=== PATIENT | male | born 1980 | race Caucasian/White ===

== ENCOUNTER 2019-11-08 11:58 | Inpatient (IN) | payer OTHER, SELFPAY ==
[2019-11-08] VITALS (11 sets, daily range): BP systolic 133–161; BP diastolic 90–107; PULSE 106–134; RESP 16–22; TEMP 36.7–39.4; O2SAT 96–98; BMI 28.0
--- NOTE | ~2019-11-08 | CT_ITS ---
EXAMINATION: CTA chest PE protocol EXAM DATE: 11/08/2019 13:53 INDICATION: Shortness of breath, fever and cough. TECHNIQUE: Spiral CTA of the chest (pulmonary arteries) was performed with 100 cc Omnipaque 350 intr avenous contrast injection. Images were acquired during the pulmonary arterial phase. Coronal maxi mum intensity projection 3D-reconstructions were created by the technologist on dedicated workstation . Axial, coronal and sagittal reformatted images were reviewed. The dose-length product (DLP) for t his examination was 527.97 mGy-cm. The exposure was tailored according to patient size (auto mA exp osure control), and iterative reconstruction (ASIR) was used as additional dose reduction technique. There is no prior study for comparison. FINDINGS: There are no pulmonary emboli in the 1st through 3rd order (central and interlobar) pulmon [place] arteries. Some loss of attenuation in the segmental pulmonary arteries due to respiratory motion , but no intraluminal filling defects suspected. No thoracic aortic dissection. The lungs are meryl r. There are no pleural or pericardial effusions. Tracheobronchial tree is patent. There is no mediastinal, hilar or axillary lymphadenopathy. There is no pneumothorax. Heart normal in size. No evidence of coronary arterial calcification. Severe hepatic steatosis. There is fluid in the eso phagus, likely gastroesophageal reflux. There is mild thoracic spondylosis without osteoblastic or o steolytic lesions identified. IMPRESSION: 1. Limited segmental evaluation, but no pulmonary emboli are suspected. 2. Hepatic steatosis. Reviewed, dictated and finalized at location A.
--- NOTE | ~2019-11-08 | US_ITS ---
EXAMINATION: US abdomen limited DATE: 11/08/2019 15:21 INDICATION: Transaminitis, hyperbilirubinemia TECHNIQUE: Multiple grayscale and Doppler ultrasound images of the abdomen were obtained. COMPARISON: None available FINDINGS: The head, body, and tail of the pancreas are normal. The liver demonstrates increased echog enicity, heterogenous echotexture, and decreased through transmission. No surface nodularity. Normal hepatopetal flow in the main portal vein. The gallbladder is normal with no abnormal wall thickening, pericholecystic fluid or stones. The normal common bile duct measures 6 mm. There was no sonographic Vargas sign. IMPRESSION: 1. Heterogeneous echotexture of the liver which may reflect steatosis or other liver disease. Reviewed, dictated and finalized at location A.
--- NOTE | ~2019-11-08 | XR_ITS ---
EXAMINATION: XR lumbar puncture diagnostic DATE: 11/09/2019 21:27 INDICATION: Confusion and fever TECHNIQUE: Consent for the procedure was obtained by the floor nursing staff. The patient understood the risks and agreed to proceed. A timeout was performed to verify the patient's name, date of michel h, and procedure to be performed. The skin overlying the L4-5 level was prepared and draped in usual sterile fashion. Subcutaneous 1% lidocaine was used for local anesthesia. A 20 gauge spinal needle w as advanced under fluoroscopic guidance. There was blood return through the needle and the needle was removed. Next, a 22 gauge spinal needle was advanced under fluoroscopic guidance. This yielded cereb rospinal fluid. The needle was removed and the entry site was cleaned and dressed. There were no imme diate complications. Fluoroscopy exposure time was 0.3 minutes. The DAP for this procedure was 25.981 Gycm2. Three images were obtained. FINDINGS: Real-time fluoroscopy demonstrates the needle at the L4-5 level. 12 mL of sanguinous, cloud y fluid was collected in 4 tubes. IMPRESSION: 1. Successful fluoro-guided lumbar puncture. Reviewed, dictated and finalized at location A.
--- NOTE | ~2019-11-08 | XR_ITS ---
EXAMINATION: XR chest 1V portable EXAM DATE: 11/08/2019 12:52 INDICATION: Cough and dyspnea. TECHNIQUE: Portable AP frontal chest x-ray was obtained. There is no prior study for comparison. FINDINGS: The lungs are clear. There are no pleural effusions. The cardiomediastinal silhouette is within normal limits. There is no pneumothorax suspected. The bones and soft tissues are unremarkab le. IMPRESSION: Unremarkable chest x-ray exam. Reviewed, dictated and finalized at location A.
--- NOTE | ~2019-11-08 | US_ITS ---
US renal BI DATE: 11/16/2019 14:08 INDICATION: Acute renal failure TECHNIQUE: Real-time imaging of the kidneys and urinary bladder COMPARISON: 11/08/2019 limited abdominal ultrasound examination FINDINGS: The right kidney measures approximately 13.2 cm length, the left kidney 12.4 cm. No renal m ass lesion or hydronephrosis is evident. The urinary bladder is evacuated and not optimally evaluated as a result. IMPRESSION: No evidence of obstructive uropathy; no hydronephrosis No renal mass lesion is evident Reviewed, dictated and finalized at Location A. Reviewed, dictated and finalized at location A.
--- NOTE | ~2019-11-08 | MR_ITS ---
EXAMINATION: MR brain/brain stem wo/w con EXAM DATE: 11/11/2019 09:45 INDICATION: Fever, altered mental status. Mouth sores. TECHNIQUE: Magnetic resonance imaging (MRI) of the brain/brain stem obtained without contrast. Sagit basilia T1, axial diffusion, gradient echo (T2*), T1, T2, FLAIR sequences obtained. Patient was then inj ected with 18 cc intravenous Multihance contrast. Axial and coronal postcontrast T1 weighted sequence s obtained. There is no prior study for comparison. FINDINGS: There are no areas of restricted diffusion to suggest acute infarction. There is no acute hemorrhage seen on the T2*, a hemosiderin sensitive sequence. No intraparenchymal brain mass. The ve ntricles are normal in size. There are no extra-axial collections. Flow voids are seen in the cereb ral arteries on the T2-weighted sequences consistent with their expected patency. The orbits are unr emarkable. Soft tissue is unremarkable. There are no areas of abnormal enhancement on the postcont rast images. IMPRESSION: Normal brain MRI examination. Reviewed, dictated and finalized at location B.
--- NOTE | ~2019-11-08 | CT_ITS ---
EXAMINATION: CT brain wo con INDICATION: Confusion and altered mental status COMPARISON: None TECHNIQUE: Standard unenhanced head CT. The dose-length product (DLP) was 529.67 mGy-cm. The mA was a djusted according to patient size. Iterative reconstruction technique was employed. FINDINGS: There is no intracranial hemorrhage, acute infarction, or abnormal mass lesion. The ventric les are normal. There is no abnormal mass effect or midline shift. The cooper-white matter differentiat ion is normal. The basal cisterns are patent. The orbits are normal. The paranasal sinuses, mastoids and calvarium are normal. IMPRESSION: 1. No acute intracranial abnormality. Reviewed, dictated and finalized at location A.
--- NOTE | 2019-11-08 12:09 | ECG_ITS ---
Measurements Intervals [place] Rate: 120 P: 51 ME: 136 QRS: -88 QRSD: 101 T: 62 QT: 336 QTc: 476 Interpretive Statements SINUS TACHYCARDIA LEFT ANTERIOR FASCICULAR BLOCK BASELINE WANDER- I, III, V1, V4-V6 ABNORMAL ECG Electronically Signed On 11-08-2019 13:18:12 CDT by Gera Tapia D.O.
--- NOTE | 2019-11-08 12:09 | ED.GENADULT ---
HPI - General Adult General Chief complaint: Shortness of Breath/Dyspnea Stated complaint: ST, ORAL LESIONS, SOB Time Seen by Provider: 11/08/19 12:08 Source: patient Mode of arrival: ambulatory Limitations: no limitations History of Present Illness HPI narrative: Patient is a 39-year-old male who presents for evaluation of fever, cough and shortness of breath. Patient has had 3 days worth of symptoms, states he has had fevers, chills at home. At times he is very diaphoretic. He denies any chest pain, myalgias, back pain, abdominal pain, diarrhea. He has had some nausea, no emesis. States he has had decreased oral intake, but has been able to tolerate oral intake. Patient reports sore throat, rhinorrhea and congestion. He reports sores on his mouth. No rash otherwise, no sores on his hands or feet. No recent sick contacts. 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 Patient has mostly been isolating at home with family. Patient has no other known medical problems. No recent travel. Related Data Allergies Allergy/AdvReac Type Severity Reaction Status Date / Time No Known Allergies Allergy Unknown Verified 11/08/19 12:12 Review of Systems Review of Systems: Narrative: CONSTITUTIONAL: Reports fever, chills, diaphoresis EYES: Denies visual changes, redness, or discharge. ENT: Reports rhinorrhea, congestion, sore throat, sores overlying mouth CARDIOVASCULAR: Denies chest pain, reports palpitations RESPIRATORY: Reports cough and shortness of breath GASTROINTESTINAL: Denies abdominal pain, reports nausea GENITOURINARY: Denies dysuria or hematuria. SKIN: Denies rash or itching. MUSCULOSKELETAL: Denies back pain, joint pain, or myalgia. NEUROLOGIC: Denies headache, numbness, or weakness. [facility] Past Medical History Medical History (Updated 11/08/19 @ 14:30 by Gris Riddle MD) Anxiety Lipoma of back Family History Family History (Updated 07/16/19 @ 13:52 by Destiney John CMA) Mother Breast cancer Father Hypertension Social History Social History Smokeless tobacco user: chewing tobacco Alcohol intake: current Gender identity (if verbalized by the patient): Male Exam Narrative: Exam Narrative: GENERAL: Awake, alert, conversant, rigorous, diaphoretic HEAD: Normocephalic, atraumatic. EYES: PERRLA and EOMI. ENT: Nares clear, no rhinorrhea or epistaxis. Mucous membranes moist. Aphthous ulcers of tongue, lips. Exudate in posterior oropharynx, bilateral tonsils. NECK: Supple. CHEST: Tachypneic, coarse respirations bilaterally Heart, tachycardic, sinus rhythm ABDOMEN:Non distended, non tender EXTREMITIES: Normal range of motion. No edema. SKIN: Warm, dry, no rash. NEURO:No focal deficits. Alert and oriented x3 Course Vital Signs Vital signs: Vital Signs Temperature 37.7 C H 11/08/19 12:06 Pulse Rate 134 H 11/08/19 12:06 Respiratory Rate 22 H 11/08/19 12:06 Blood Pressure 161/107 H 11/08/19 12:06 Pulse Oximetry 97 11/08/19 12:06 Temperature 37.7 C H 11/08/19 12:06 Pulse Rate 112 H 11/08/19 14:08 Respiratory Rate 16 11/08/19 14:08 Blood Pressure 147/99 H 11/08/19 14:08 Pulse Oximetry 96 11/08/19 14:08 Medical Decision Making MDM Narrative Medical decision making narrative: Patient is a 39-year-old male who presented for evaluation of cough, sore throat, shortness of breath. At the time of initial assessment, ABCs are intact, vital signs are notable for tachycardia, tachypnea and fever. Patient is not hypoxic. No increased work of breathing or respiratory distress. Given concern for sepsis, IV access obtained and labs are drawn. Initially wanted to withhold a 30 mL/kg fluid bolus because I was concerned the patient may have COVID and I know that judicious fluids are recommended in these patients. Strep swab negative. Blood cultures obtained, patient was given IV
[2019-11-08] MEDS: SODIUM CHLORIDE 0.9% IV 1,000 ML 999 ML IV CONT ×2 (12:31→16:06)
[2019-11-08 12:32] LABS: Basophils Percent Auto 0.3 % (0.2-1.2); Hematocrit 44.2 % (42.0-52.0); Hemoglobin 15.6 g/dL (14.0-18.0); Immature Granulocyte Absolute 0.05 K/mm3 (0.00-0.031); Immature Granulocyte Percent A 0.8 % (0-0.5); Lymphocytes Absolute Auto 0.55 K/mm3 (0.9-3.2); Lymphocytes Percent Auto 8.5 % (18.3-44.2); Mean Corpuscular HGB Conc 35.3 g/dl (32-36); Mean Corpuscular Hemoglobin 32.8 pg (26-34); Mean Corpuscular Volume 92.9 fl (80-100); Monocytes Absolute Auto 0.9 K/mm3 (0.1-0.6); Monocytes Percent Auto 13.7 % (2.6-8.5); Neutrophils Absolute Auto 4.9 K/mm3 (1.3-6.7); Neutrophils Percent Auto 76.7 % (45.5-73.1); Platelet Count Result 153 k/mm3 (150-375); Red Blood Count 4.76 M/mm3 (4.6-6.20); Red Cell Distribution Width 13.8 % (11.5-14.5); White Blood Count 6.4 K/mm3 (4.5-10.0)
[2019-11-08 12:36] LABS: Alveolar/Arterial O2 Gradient 29.6 mmHg; Base Excess ABG 0.6 mEq/l (+/-2.0); Carboxyhemoglobin 0.6 % THb (0-2.0); Fractional Inspired Oxygen 21 %; HCO3 ABG 22.8 mEq/l (22.0-26.0); Methemoglobin ABG 0.6 %THb (0-1.5); Oxygen Saturation ABG 97.1 % (95.0-100.0); Oxyhemoglobin 95.2 % THb (90.0-100.0); PCO2 ABG 30.4 mmHg (35.0-45.0); PO2 ABG 83.7 mmHg (80.0-100.0); PO2 FiO2 Ratio Arterial Blood 3.99 %; Reduced Hemoglobin 3.6 %THb (0-5.0); Site Drawn LEFT BRACHIAL; Total Hemoglobin 16.4 g/dL (12.0-18.0); pH ABG 7.492 (7.350-7.450)
[2019-11-08 12:37] LABS: Device ROOM AIR
[2019-11-08 12:42] LABS: INR 0.9
[2019-11-08 12:43] LABS: Partial Thromboplastin Time 27.5 SECONDS (22.3-36.8)
--- NOTE | 2019-11-08 12:44 | ECG_ITS ---
Measurements Intervals [place] Rate: 114 P: 33 MO: 127 QRS: -81 QRSD: 106 T: 56 QT: 375 QTc: 518 Interpretive Statements SINUS TACHYCARDIA LEFT ANTERIOR FASCICULAR BLOCK BASELINE ARTIFACT- I, II, III, AVR, AVL, AVF, V1, V5-V6 ABNORMAL ECG Electronically Signed On 11-08-2019 13:19:57 CDT by Gera Tapia D.O.
[2019-11-08 12:45] LABS: Lactic Acid Reflex 3.2 mmol/L (0.7-2.1); Lipase 239 U/L (23-300)
[2019-11-08 12:56] LABS: NT Pro B Type Natriuretic Pept 511 PG/ML (5-100)
[2019-11-08 12:58] LABS: Troponin I < 0.012 ng/mL (0.000-0.034)
[2019-11-08 13:19] LABS: Alanine Aminotransferase 321 U/L (4-50); Albumin Level 4.7 g/dL (3.5-5.1); Alkaline Phosphatase 202 U/L (38-126); Aspartate Amino Transferase 695 U/L (17-59); Bilirubin,Total 1.7 mg/dL (0.2-1.3); Blood Urea Nitrogen 17 mg/dL (9-20); CRP 3.4 mg/dL (<1.0); Calcium 9.5 mg/dL (8.4-10.2); Carbon Dioxide 24 mmol/L (22-30); Chloride 83 mmol/L (98-107); Estimated Glomerular Filt Rate > 60; Glucose 119 mg/dL (75-110); Lactate Dehydrogenase 1276 U/L (313-618); Potassium 2.6 mmol/L (3.4-5.0); Sodium 125 mmol/L (137-145)
[2019-11-08 13:54] LABS: HIV 1/2 Ab P24 Ag Result Negative (Negative)
[2019-11-08] MEDS: POTASSIUM CHLORIDE 20 MEQ PACKET (FOR LIQUID) 40 MEQ PO (13:59)
[2019-11-08 14:14] LABS: Add Urine Microscopic? YES; Appearance Urine Clear (Clear); Bacteria Urine Trace /hpf; Bilirubin Urine 2+ (Negative); Blood Urine 1+ (Negative); Color Urine Amber (Yellow); Glucose Urine UA Negative (Negative); Hyaline Casts Urine 50+ /lpf; Ketones Urine 1+ mg/dL (Negative); Leukocyte Esterase Ur Negative LEU/UL (Negative); Mucus Urine Heavy /lpf; Nitrate Urine Negative (Negative); Protein Urine 3+ mg/dL (Negative); Specific Grav Ur 1.027 (1.001-1.035); Squamous Epithelial Cell Urine Rare /hpf (Few); WBC Urine 16-20 /hpf
[2019-11-08 14:52] LABS: Ferritin > 2000.00 ng/mL (17.9-464)
[2019-11-08 15:30] LABS: Reflex Lactic Acid Yes or No Add Lactic
--- NOTE | 2019-11-08 15:36 | ADMGEN ---
This patient, Gage Saeed, was admitted to 3 Med Surg Room 329-01 @ 1530. Patient/family oriented to hospital policies and general routines including ID bracelet, bed and alarms, visiting hours, pain management, procedures, bathroom and other care routines, personal items, smoking policy, room service/diet, and visiting hours. Valuables list has been completed. Information on how to activate the Rapid Response Team has been discussed. Patient/Family are encouraged to report perceived risks to care and to ask questions if they do not understand what they are told or what they should do.
[2019-11-08 16:06] LABS: Lactic Acid 1.7 mmol/L (0.7-2.1)
--- NOTE | 2019-11-08 16:18 | ECG_ITS ---
Measurements Intervals [place] Rate: 88 P: 41 [place]: 144 QRS: -56 QRSD: 106 T: 19 QT: 374 QTc: 454 Interpretive Statements SINUS RHYTHM LEFT ANTERIOR FASCICULAR BLOCK BASELINE ARTIFACT- II, III, AVF ABNORMAL ECG Electronically Signed On 11-08-2019 19:29:40 CDT by Gera Tapia D.O.
--- NOTE | 2019-11-08 17:00 | PM.IMHP ---
H&P: HPI History of Present Illness Chief complaint: Fever. Narrative: Gage Saeed is a pleasant 39-year-old male with hypertension, GERD, and anxiety presented to the emergency department earlier this morning via private vehicle from home for evaluation of fever. He has suffered from anxiety for approximately 4 years, and seems to have been worse recently as he and his are currently going through a divorce. It is not unusual for him to sleep poorly at night due to the anxiety, however he reports being much more fatigued when he awoke 3 days ago, on Sunday morning. As the day progressed he developed sweats and fever (T-max 102? F) and he also began noticing ulcers that have developed in his mouth in addition to hoarseness. He has also had a poor appetite with nausea, and has not really had much to eat or drink in the last 3 days. He does have a sore throat when swallowing, but denies that his oral ulcers are painful and he further denies anosmia and dysgeusia. His bowel movements have been unremarkable although not long prior to my arrival to the room he did have an episode of diarrhea at which time he felt a bit short of breath. RN also noted at that time that he was tachycardic, sustaining in the 150s. With further questioning, he was experiencing feelings of racing heart at that time but goes on to say that is not unusual for him due to his anxiety. He has lost about 10 pounds, but has been trying to lose weight over the last several months. He has been working at home since July his and sons have also been staying at home a majority of the time. He rarely leaves the house, but his does go out grocery shopping. It does not sound as though the children have been spending much time outside of the home. There is been no recent travel and he denies sick contacts. No recent antibiotic use. He takes Lexapro and Pepcid daily, but has not taken his irbesartan for a couple of months for unclear reason. He has not tried any new medications or supplements. He took 1000 milligrams of Tylenol x1 a couple of days ago, but none since that time. He denies significant alcohol use. He also denies headache, neck ache, sinus congestion, cough, rhinorrhea, otalgia, and cervical lymphadenopathy. No anosmia or dysgeusia. He has not had chest pain or pleuritic pain. No abdominal pain or vomiting. No history of hepatitis or concerns for exposure to such. He denies jaundice is pruritus. No back pain, dysuria, penile discharge, genital ulcers, and concerns for sexually transmitted infections. No rash, skin lesions, or painful joints. No history of autoimmune disease. Review of Systems Review of Systems: Narrative: Twelve systems were reviewed with pertinent positives and negatives as per HPI. He has been having a lot of anxiety recently due to impending divorce, and he has been taking Lexapro without a whole lot of benefit. He seems to be anxious the majority of the time, and sleeps poorly due to such. He denies suicidal and homicidal ideation. Except as documented, all other systems were reviewed and are negative. FORMERLY [facility], [facility] Past Medical History Medical History (Updated 11/08/19 @ 18:44 by Eufemia Marion PA-C) Anxiety Essential hypertension Gastroesophageal reflux disease Surgical History Surgical History (Updated 11/08/19 @ 17:21 by Eufemia Marion PA-C) Status post excision of lipoma Family History Family History Mother Breast cancer Father Hypertension Malignant neoplasm of prostate Social History Social History (Updated 11/08/19 @ 17:23 by Eufemia Marion PA-C) Social History: Surrogate decision maker: Chloé Saeed, . Code status: Full code. Smokeless tobacco user: chewing tobacco Alcohol intake: current Drinks per week: 4 Substance use: never Additional living arrangements comments: Currently living in [place] with his (go
[2019-11-08] MEDS: SODIUM CHLORIDE 0.9% IV 1,000 ML 125 ML IV CONT (17:26)
[2019-11-08 20:43] LABS: Amphetamine Screen Urine Negative (Negative); Barbiturate Screen Urine Negative (Negative); Benzodiazepines Screen Urine Negative (Negative); Cannabinoid Screen Urine Negative (Negative); Cocaine Screen Urine Negative (Negative); Methadone Screen Urine Negative (Negative); Opiate Screen Urine Negative (Negative); Phencyclidine Screen Urine Negative (Negative)
[2019-11-08] MEDS: ENOXAPARIN 40 MG/0.4 ML SYRINGE SUB-Q (21:17)
[2019-11-08] MEDS: FAMOTIDINE 20 MG TABLET PO (21:17)
[2019-11-08 21:36] LABS: Creatine Kinase 398 U/L (55-170)
[2019-11-08 21:37] LABS: Acetaminophen < 10 ug/mL (10-30)
[2019-11-08 21:43] LABS: Blood Urea Nitrogen 11 mg/dL (9-20); Carbon Dioxide 28 mmol/L (22-30); Chloride 90 mmol/L (98-107); Estimated CRCL calculation 117 ml/min; Estimated Glomerular Filt Rate > 60; Glucose 108 mg/dL (75-110); Magnesium 1.4 mg/dL (1.6-2.3); Sodium 126 mmol/L (137-145)
[2019-11-08 21:50] LABS: D Dimer 2.04 ug/mL (<0.48)
[2019-11-08] MEDS: POTASSIUM CHLORIDE 20 MEQ TABLET 40 MEQ PO (21:55)
[2019-11-08] MEDS: MAGNESIUM SULF 2 GM/WATER 50ML 2 GM/50 ML BAG IVPB (21:55)
[2019-11-08] MEDS: ACETAMINOPHEN 325 MG TABLET 650 MG PO (21:55)
[2019-11-08 22:49] LABS: Iron 55 ug/dL (49-181)
[2019-11-09] VITALS (18 sets, daily range): BP systolic 135–152; BP diastolic 90–108; PULSE 85–124; RESP 16–20; TEMP 37.4–39.2; O2SAT 92–99
[2019-11-09 00:10] LABS: Ferritin > 2000.00 ng/mL (17.9-464)
[2019-11-09] MEDS: SODIUM CHLORIDE 0.9% IV 1,000 ML 125 ML IV CONT ×3 (03:32→21:03)
[2019-11-09] MEDS: ACETAMINOPHEN 325 MG TABLET 650 MG PO ×2 (05:32→15:05)
[2019-11-09 06:31] LABS: Basophils Percent Auto 0.4 % (0.2-1.2); Hematocrit 39.4 % (42.0-52.0); Hemoglobin 13.6 g/dL (14.0-18.0); Immature Granulocyte Absolute 0.03 K/mm3 (0.00-0.031); Immature Granulocyte Percent A 0.6 % (0-0.5); Immature Platelet Fraction Pct 5.7 % (0.9-11.2); Lymphocytes Absolute Auto 0.65 K/mm3 (0.9-3.2); Lymphocytes Percent Auto 13.7 % (18.3-44.2); Mean Corpuscular HGB Conc 34.5 g/dl (32-36); Mean Corpuscular Hemoglobin 32.7 pg (26-34); Mean Corpuscular Volume 94.7 fl (80-100); Monocytes Absolute Auto 0.9 K/mm3 (0.1-0.6); Neutrophils Absolute Auto 3.1 K/mm3 (1.3-6.7); Neutrophils Percent Auto 66.3 % (45.5-73.1); Platelet Count Result 125 k/mm3 (150-375); Red Blood Count 4.16 M/mm3 (4.6-6.20); White Blood Count 4.7 K/mm3 (4.5-10.0)
[2019-11-09 06:40] LABS: Alanine Aminotransferase 231 U/L (4-50); Alkaline Phosphatase 144 U/L (38-126); Aspartate Amino Transferase 425 U/L (17-59); Blood Urea Nitrogen 10 mg/dL (9-20); Calcium 8.8 mg/dL (8.4-10.2); Carbon Dioxide 26 mmol/L (22-30); Chloride 93 mmol/L (98-107); Creatine Kinase 424 U/L (55-170); Estimated CRCL calculation 117 ml/min; Estimated Glomerular Filt Rate > 60; Glucose 97 mg/dL (75-110); Phosphorus 2.6 mg/dL (2.5-4.5); Potassium 3.5 mmol/L (3.4-5.0); Sodium 131 mmol/L (137-145)
[2019-11-09] MEDS: ESCITALOPRAM OXALATE 10 MG TABLET PO (08:24)
[2019-11-09] MEDS: IRBESARTAN 150 MG TABLET PO (08:24)
[2019-11-09] MEDS: FAMOTIDINE 20 MG TABLET PO ×2 (08:25→21:02)
--- NOTE | 2019-11-09 15:36 | PM.IMPN ---
Progress Note: A&P Assessment and Plan (1) Sepsis: Qualifiers: Sepsis acute organ dysfunction status: without acute organ dysfunction Sepsis type: sepsis due to unspecified organism Qualified Code(s): A41.9 - Sepsis, unspecified organism Code(s): A41.9 - Sepsis, unspecified organism Status: Acute Assessment and Plan: Present on admission with fever, tachycardia, and elevated lactic acid level to 3.2. Repeat lactic normal. He received a dose of vancomycin and cefepime in the ED but abx not continued. BCx NGTD. CTA showing no PE or airspace disease. Abd soft and GB normal by US. UA noted and UCx pending. Continue to control fevers with Ibuprofen. Stop acetaminophen due to the elevated LFTs. Tyree resume abx until definite dx determined or BCx remain negative. (2) Suspected COVID-19 virus infection: Code(s): Z20.828 - Contact with and (suspected) exposure to other viral communicable diseases Status: Acute Assessment and Plan: Somewhat unusual for him to have contracted COVID-19 given his hx but his still works in the community. He does have concerning features of COVID with fever, mental status changes, sore throat, elevated ferritin/LDH/DDimer/CRP. No lung findings but this does not exclude COVID. Swab for SARS-CoV-2 has been collected and is pending. Continue contact, droplet, and airborne isolation. (3) Elevated LFTs: Code(s): R79.89 - Other specified abnormal findings of blood chemistry Status: Acute Assessment and Plan: AST 695 and ALT 321 with AP 321 and TB 1.7 on admission. Levels trending down. More hepatocellular and suspect related to above complicated by his underlying hepatic steatosis. Acetaminophen level negative. HIV negative. Lipase normal. TCK mildly elevated but not felt to be the etiology of the elevated LFTs. Check hepatitis panel and CMV titers. (4) Hypokalemia: Code(s): E87.6 - Hypokalemia Status: Acute Assessment and Plan: Potassium 2.6 on admission. This was replaced and normal now. Continue IV fluids and follow levels. Replace as needed. (5) Hyponatremia: Code(s): E87.1 - Hypo-osmolality and hyponatremia Status: Acute Assessment and Plan: Sodium 125 on admission. Suspect related to dehydration. Consider [place] disease but felt less likely since usually a self limiting disease related to known outbreak. Continue IV fluids. (6) Dehydration: Code(s): E86.0 - Dehydration Status: Acute Assessment and Plan: Mild related to above. Continue IV flluids (7) Oral ulcer: Code(s): K12.1 - Other forms of stomatitis Status: Acute Assessment and Plan: Differential is broad and includes HSV (no history of such or concerns for exposure), Bechet syndrome (no gender ulcerations, skin or eye lesions), HIV (rapid screen negative, no new sexual partners or partner infidelity), inflammatory bowel disease, SLE, nutritional deficiencies, other viral infection. Will add Popvic's solution given his sore throat. Also add acyclovir until some results return. (8) Essential hypertension: Code(s): I10 - Essential (primary) hypertension Status: Acute Assessment and Plan: Blood pressure reviewed on 11/09/2019. Blood pressure is still mildly elevated possibly related to above. Patient has been noncompliant with his antihypertensive medications. Continue the irbesartan. Continue to monitor and adjust medications accordingly. (9) Anxiety: Code(s): F41.9 - Anxiety disorder, unspecified Status: Acute Assessment and Plan: Mildly anxious but felt related to above and not from SHELLI. Denies taking excessive amounts of Lexapro so feel Serotonin Syndrome less likely. Will hold Lexapro until I can have his review the patient's pill bottle. Additional Plan 40 minutes spent on critical care time with this
[2019-11-09] MEDS: ACYCLOVIR 400 MG TABLET PO (17:53)
[2019-11-09 19:23] LABS: Monoscreen Negative (Negative); Negative Monotest Control Negative (Negative); Positive Monotest Control Positive (Positive)
--- NOTE | 2019-11-09 19:33 | PC.NURSE ---
Patient to CT per wheelchair.
--- NOTE | 2019-11-09 19:41 | PC.NURSE ---
Attempted to notify family of patients change in status. Unable to reach as it goes straight to voicemail.
[2019-11-09 19:55] LABS: Hepatitis B Surface Antigen Negative (Negative)
[2019-11-09 20:01] LABS: HAV RESULT Negative (Negative); Hepatitis B Core IgM Result Negative (Negative)
[2019-11-09 20:13] LABS: Hepatitis C Virus Antibody Negative (Negative)
[2019-11-09] MEDS: ENOXAPARIN 40 MG/0.4 ML SYRINGE SUB-Q (21:02)
[2019-11-09] MEDS: TOLNAFTATE 1% POWDER 45 GM BTL 1 APPLIC TOPICAL (21:03)
[2019-11-09] MEDS: WATER IVPB (21:42)
[2019-11-09] MEDS: ACYCLOVIR SODIUM IVPB (21:42)
[2019-11-09] MEDS: DEXTROSE 5% IVPB (21:42)
[2019-11-09 21:54] LABS: Glucose CSF 69 mg/dL (40-70); Total Protein CSF 151 mg/dL (12-60)
[2019-11-09 22:14] LABS: Appearance CSF Bloody (Clear); CSF source CSF; Color CSF Red (Colorless)
[2019-11-09 22:15] LABS: Lymphocytes CSF 40 % (40-80); Monocytes CSF 1 % (15-45); Neutrophils CSF 59 % (0-6); Nucleated Cell CSF 44 /uL (0-5); Red Blood Cell CSF 9357 (0-2)
[2019-11-10] VITALS (11 sets, daily range): BP systolic 129–142; BP diastolic 79–101; PULSE 72–117; RESP 18–20; TEMP 36.1–39; O2SAT 96–99
[2019-11-10] MEDS: SODIUM CHLORIDE 0.9% IV 1,000 ML 125 ML IV CONT ×2 (02:46→11:46)
[2019-11-10] MEDS: ACYCLOVIR SODIUM IVPB ×3 (05:00→22:55)
[2019-11-10] MEDS: DEXTROSE 5% IVPB ×3 (05:00→22:55)
[2019-11-10] MEDS: WATER IVPB ×3 (05:00→22:55)
[2019-11-10 06:15] LABS: Basophils Percent Auto 0.4 % (0.2-1.2); Eosinophils Percent Auto 0.2 % (0-4.4); Hematocrit 38.1 % (42.0-52.0); Immature Granulocyte Absolute 0.04 K/mm3 (0.00-0.031); Immature Granulocyte Percent A 0.7 % (0-0.5); Immature Platelet Fraction Pct 4.2 % (0.9-11.2); Lymphocytes Absolute Auto 0.92 K/mm3 (0.9-3.2); Lymphocytes Percent Auto 16.5 % (18.3-44.2); Mean Corpuscular HGB Conc 34.1 g/dl (32-36); Mean Corpuscular Hemoglobin 32.5 pg (26-34); Mean Corpuscular Volume 95.3 fl (80-100); Mean Platelet Volume 10.1 fl (7.4-10.4); Monocytes Absolute Auto 1.5 K/mm3 (0.1-0.6); Monocytes Percent Auto 26.7 % (2.6-8.5); Neutrophils Absolute Auto 3.1 K/mm3 (1.3-6.7); Neutrophils Percent Auto 55.5 % (45.5-73.1); Platelet Count Result 128 k/mm3 (150-375); Red Cell Distribution Width 13.9 % (11.5-14.5); White Blood Count 5.6 K/mm3 (4.5-10.0)
[2019-11-10 06:32] LABS: Alanine Aminotransferase 167 U/L (4-50); Albumin Level 3.8 g/dL (3.5-5.1); Alkaline Phosphatase 128 U/L (38-126); Aspartate Amino Transferase 264 U/L (17-59); Bilirubin,Total 0.7 mg/dL (0.2-1.3); Blood Urea Nitrogen 7 mg/dL (9-20); CRP 3.5 mg/dL (<1.0); Calcium 8.7 mg/dL (8.4-10.2); Carbon Dioxide 26 mmol/L (22-30); Chloride 92 mmol/L (98-107); Creatine Kinase 414 U/L (55-170); Estimated CRCL calculation 133 ml/min; Estimated Glomerular Filt Rate > 60; Glucose 117 mg/dL (75-110); Lactate Dehydrogenase 977 U/L (313-618); Magnesium 1.8 mg/dL (1.6-2.3); Phosphorus 3.1 mg/dL (2.5-4.5); Potassium 2.8 mmol/L (3.4-5.0); Sodium 130 mmol/L (137-145)
--- NOTE | 2019-11-10 06:43 | PC.NURSE ---
Lab reports patient potassium level 2.8. Result reported to Doctor Vicky. Received order for 60 sonam potassium PO x1 and repeat level at noon then report results to provider. Orders entered.
[2019-11-10] MEDS: POTASSIUM CHLORIDE 20 MEQ TABLET 40 MEQ PO (06:47)
[2019-11-10] MEDS: POTASSIUM CHLORIDE 20 MEQ TABLET PO (06:47)
[2019-11-10] MEDS: FAMOTIDINE 20 MG TABLET PO ×2 (08:18→21:35)
[2019-11-10] MEDS: IRBESARTAN 150 MG TABLET PO (08:18)
[2019-11-10] MEDS: TOLNAFTATE 1% POWDER 45 GM BTL 1 APPLIC TOPICAL ×2 (08:19→21:36)
[2019-11-10 09:03] LABS: Ferritin > 2000.00 ng/mL (17.9-464)
--- NOTE | 2019-11-10 11:04 | PC.NURSE ---
Patient has been disconnecting is IV from the IV pump tubing. I have instructed him to stop and to call use his call light if he has any concerns about the IV. After I had finished instructing the patient, he attempted again to disconnect his tubing. I have wrapped the IV site and connection with gauze kerlix to discourage the patient from touching the connectors or tubing again.
--- NOTE | 2019-11-10 12:47 | PM.IMPN ---
Progress Note: A&P Assessment and Plan (1) Sepsis: Qualifiers: Sepsis acute organ dysfunction status: without acute organ dysfunction Sepsis type: sepsis due to unspecified organism Qualified Code(s): A41.9 - Sepsis, unspecified organism Code(s): A41.9 - Sepsis, unspecified organism Status: Acute Assessment and Plan: Present on admission with fever, tachycardia, and elevated lactic acid level to 3.2. Repeat lactic normal. He received a dose of vancomycin and cefepime in the ED but abx not continued. BCx NGTD. CTA showing no PE or airspace disease. Abd soft and GB normal by US. UA noted and UCx essentialy negative. Has been grilling out and has a lot of mosquitoes. LP performed given the concern for Collette or other encephalopathies. CSF protein elevated with normal glucose c/w viral. WNV sent as well. A myriad of labs sent are pending. Abx resumed and to cover for meningitis. Also added acyclovir menigitic doses. Continue to control fevers with Ibuprofen. (2) Suspected COVID-19 virus infection: Code(s): Z20.828 - Contact with and (suspected) exposure to other viral communicable diseases Status: Acute Assessment and Plan: Somewhat unusual for him to have contracted COVID-19 given his hx but his still works in the community. He does have concerning features of COVID with fever, mental status changes, sore throat, elevated ferritin/LDH/DDimer/CRP. No lung findings but this does not exclude COVID. Swab for SARS-CoV-2 has been collected and is pending. Continue contact, droplet, and airborne isolation. COVID negative. (3) Elevated LFTs: Code(s): R79.89 - Other specified abnormal findings of blood chemistry Status: Acute Assessment and Plan: AST 695 and ALT 321 with AP 321 and TB 1.7 on admission. Levels trending down. More hepatocellular and suspect related to above complicated by his underlying hepatic steatosis. Acetaminophen level negative. HIV negative. Hepatitis panel negative. Lipase normal. TCK mildly elevated but not felt to be the etiology of the elevated LFTs. Follow up on lab results. (4) Hypokalemia: Code(s): E87.6 - Hypokalemia Status: Acute Assessment and Plan: Potassium 2.6 on admission. This was replaced and normalized. Repeat potassium today now down to 2.8. Replacemetn ordered again. Repeat level pending. Continue IV fluids and follow levels. Replace as needed. (5) Hyponatremia: Code(s): E87.1 - Hypo-osmolality and hyponatremia Status: Acute Assessment and Plan: Sodium 125 on admission. Suspect related to dehydration +/- part of the infectious etiology. Consider [place] disease but felt less likely since usually a self limiting disease related to known outbreak. Sodium 130 today. Continue IV fluids. (6) Dehydration: Code(s): E86.0 - Dehydration Status: Acute Assessment and Plan: Mild related to above. Continue IV flluids (7) Oral ulcer: Code(s): K12.1 - Other forms of stomatitis Status: Acute Assessment and Plan: Differential is broad and includes HSV (no history of such or concerns for exposure), Bechet syndrome (no gender ulcerations, skin or eye lesions), HIV (rapid screen negative, no new sexual partners or partner infidelity), inflammatory bowel disease, SLE, nutritional deficiencies, other viral infection. Symptoms better and ulcers appear improved. Continue Popvic's solution given his sore throat. Continue acyclovir. (8) Essential hypertension: Code(s): I10 - Essential (primary) hypertension Status: Acute Assessment and Plan: Blood pressure reviewed on 11/10/2019. Blood pressure is still mildly elevated but better overall. Patient has been noncompliant with his antihypertensive medications. Continue the irbesartan. Continue to monitor and adjust medications accordingly. (9) Anxiety
[2019-11-10 13:09] LABS: Potassium 2.7 mmol/L (3.4-5.0)
--- NOTE | 2019-11-10 13:13 | CONS_ITS ---
DATE OF CONSULTATION: 11/08/2019 HISTORY OF PRESENT ILLNESS: A 39-year-old has been admitted to [facility] through the emergency room for the complaints of: 1. Fever. 2. History of hypertension, GERD, and anxiety. He came to the emergency room via private vehicle from home for the evaluation of fever in addition to history of ongoing anxiety for 4 years, which he attributed to the divorce proceeding going on for the last several years. He reported that it is not unusual for him to sleep poorly. He has recently been feeling fatigued. Three days ago, he woke up in the morning with excessively tiredness; as the day progressed, he became sweaty, temperature domenica to 102 degrees Fahrenheit. He noted ulcer in his mouth in addition to the hoarseness with poor appetite, nausea, not able to drink over the last several days along with a sore throat, swallowing difficulties and painful oral ulcers. He had an episode of diarrhea before coming to the emergency room and also felt a bit short of breath. He was notedly tachycardic in 150s. He has lost about 10 pounds, though he is not trying to lose weight over the last several months. He rarely leaves the house. There has not been any recent travel, sick contact, no recent antibiotic use. He is on Lexapro and Pepcid on a daily basis. He has not taken his antihypertensive medication for several months and he has taken Tylenol only 1 time couple of days ago. No history of drinking alcohol. PAST HISTORY: As mentioned above is consistent with anxiety with hypertension and GERD. He carries a full code status. Chews tobacco, current 4 drinks per week alcohol. MEDICATIONS: Included citalopram 10 mg daily with irbesartan 150 mg daily. ALLERGIES: HE IS NOT ALLERGIC TO ANY MEDICATION. PHYSICAL EXAMINATION: VITAL SIGNS: Evaluation documented him to be low-grade temperature of 99.8 with a pulse of 112 at this time, respirations 16, blood pressure 147/99, though initially he was low-grade febrile and also pulse was rapid in addition to the mild tachypnea. GENERAL: He is well developed, awake, alert, cooperative, in no obvious acute distress, except being anxious. HEAD: Normocephalic with no cranial bruit. Ear, nose, throat examination normal. NECK: Supple with no cervical bruit. No thyromegaly. No lymphadenopathy. Oral cavity has scattered ulcer on the lips and tongue. No vesicles. NECK: Supple with no meningeal signs. HEART: Regular. LUNGS: Clear. ABDOMEN: Soft, nontender. Normal bowel sounds. SKIN: Normal. NEUROLOGIC: Awake, alert, oriented x3. Pupils round, regular. Oneill of vision full. Extraocular movements full. Face symmetrical. Tongue midline. Motor examination revealed him to have no drift of 1 side other side. Reflexes sluggish. Plantars downgoing. LABORATORY DATA: Evaluation up until now again revealed the CBC with no leukocytosis. Hemoglobin 15.6, platelet count 153. LDH 1276, CRP 3.4, BNP 511. Basic metabolic panel with low potassium 2.6, chloride of 83 and troponin less than 0.012. Hepatic enzymes elevated. AST 695, ALT 321, alkaline phosphate 202, albumin 4.7. UA with 3+ protein. Initial chest x-ray negative. CTA of the chest limited, but no pulmonary emboli. Hepatic steatosis. Abdominal ultrasound, echotexture of the liver is heterogeneous. The patient admitted to the hospital with the diagnosis of sepsis. Other investigations include head CT negative. Lumbar puncture, double attempt. Basic metabolic panel with sodium 130, potassium 2.8, and a CSF though bloody, nucleated cells 44, neutrophils 59, 40 lymphocytes, 1 monocyte. Protein 151. CSF Gram stains are pending. Urine culture, multiple organism. Throat culture for group A strep pending and other blood cultures pending as well. At this stage,
[2019-11-10 18:54] LABS: SARS-CoV-2 RNA PCR Negative
--- NOTE | 2019-11-10 19:11 | PC.NURSE ---
Notified Dr. Guthrie that patient COVID test was negative. No new orders were obtained.
[2019-11-10 21:23] LABS: Potassium 3.1 mmol/L (3.4-5.0)
[2019-11-10] MEDS: ENOXAPARIN 40 MG/0.4 ML SYRINGE SUB-Q (21:34)
[2019-11-10] MEDS: IBUPROFEN IV 400 MG in SODIUM CHLORIDE 0.9% IV 100 ML 200 MG IVPB (22:12)
[2019-11-11] VITALS (9 sets, daily range): BP systolic 126–146; BP diastolic 72–105; PULSE 76–120; RESP 18–20; TEMP 37.1–37.9; O2SAT 95–98
[2019-11-11] MEDS: SODIUM CHLORIDE 0.9% IV 1,000 ML 125 ML IV CONT (02:49)
[2019-11-11] MEDS: ACYCLOVIR SODIUM IVPB ×3 (05:06→22:18)
[2019-11-11] MEDS: DEXTROSE 5% IVPB ×3 (05:06→22:18)
[2019-11-11] MEDS: WATER IVPB ×3 (05:06→22:18)
[2019-11-11 06:00] LABS: Hematocrit 38.8 % (42.0-52.0); Hemoglobin 13.6 g/dL (14.0-18.0); Mean Corpuscular HGB Conc 35.1 g/dl (32-36); Mean Corpuscular Hemoglobin 32.7 pg (26-34); Mean Corpuscular Volume 93.3 fl (80-100); Mean Platelet Volume 9.7 fl (7.4-10.4); Platelet Count Result 151 k/mm3 (150-375); Red Blood Count 4.16 M/mm3 (4.6-6.20); Red Cell Distribution Width 13.8 % (11.5-14.5); White Blood Count 6.3 K/mm3 (4.5-10.0)
[2019-11-11 06:17] LABS: Alanine Aminotransferase 135 U/L (4-50); Alkaline Phosphatase 127 U/L (38-126); Aspartate Amino Transferase 171 U/L (17-59); Bilirubin,Total 0.7 mg/dL (0.2-1.3); Blood Urea Nitrogen 6 mg/dL (9-20); Carbon Dioxide 28 mmol/L (22-30); Chloride 95 mmol/L (98-107); Creatine Kinase 552 U/L (55-170); Estimated CRCL calculation 133 ml/min; Estimated Glomerular Filt Rate > 60; Glucose 135 mg/dL (75-110); Potassium 2.7 mmol/L (3.4-5.0); Sodium 133 mmol/L (137-145)
[2019-11-11] MEDS: IBUPROFEN IV 400 MG in SODIUM CHLORIDE 0.9% IV 100 ML 200 MG IVPB (06:41)
[2019-11-11 06:42] LABS: Vancomycin Trough 6.6 ug/mL (10.0-20.0)
[2019-11-11] MEDS: POTASSIUM CHLORIDE 20 MEQ TABLET 40 MEQ PO ×3 (06:58→20:34)
[2019-11-11 07:12] LABS: Band Neutrophils Percent 1 % (0-6); Lymphocytes Absolute Manual 1.82 K/mm3 (1.1-4.5); Monocytes Percent Manual 27 % (3-9); Neutrophils Absolute Manual 2.77 K/mm3 (1.3-6.7); Neutrophils Percent Manual 43 % (46-73); Platelet Estimate Adequate (Adequate); Total Cells Counted 100
[2019-11-11] MEDS: FAMOTIDINE 20 MG TABLET PO ×2 (08:07→20:34)
[2019-11-11] MEDS: AMLODIPINE BESYLATE 5 MG TABLET PO (08:07)
[2019-11-11] MEDS: TOLNAFTATE 1% POWDER 45 GM BTL 1 APPLIC TOPICAL ×2 (08:09→20:43)
--- NOTE | 2019-11-11 12:03 | WPDNEUROPN ---
Progress Note: A&P Assessment and Plan (1) Anxiety: Code(s): F41.9 - Anxiety disorder, unspecified Status: Acute (2) Dehydration: Code(s): E86.0 - Dehydration Status: Acute (3) Hyponatremia: Code(s): E87.1 - Hypo-osmolality and hyponatremia Status: Acute (4) Hypokalemia: Code(s): E87.6 - Hypokalemia Status: Acute (5) Elevated LFTs: Code(s): R79.89 - Other specified abnormal findings of blood chemistry Status: Acute (6) Suspected COVID-19 virus infection: Code(s): Z20.828 - Contact with and (suspected) exposure to other viral communicable diseases Status: Acute (7) Oral ulcer: Code(s): K12.1 - Other forms of stomatitis Status: Acute (8) Essential hypertension: Code(s): I10 - Essential (primary) hypertension Status: Acute (9) Sepsis: Qualifiers: Sepsis acute organ dysfunction status: without acute organ dysfunction Sepsis type: sepsis due to unspecified organism Qualified Code(s): A41.9 - Sepsis, unspecified organism Code(s): A41.9 - Sepsis, unspecified organism Status: Acute (10) Acute hypokalemia: Code(s): E87.6 - Hypokalemia Status: Acute (11) Transaminitis: Code(s): R74.0 - Nonspecific elevation of levels of transaminase and lactic acid dehydrogenase [LDH] Status: Acute (12) Establishing care with new doctor, encounter for: Code(s): Z76.89 - Persons encountering health services in other specified circumstances Status: Acute Additional Plan all cultures negative Review of Systems Review of Systems: All systems reviewed & are unremarkable except as noted in HPI and below Exam Const: General: cooperative, healthy appearing, comfortable, no acute distress, well developed, alert, awake and Physically active Nutritional Appearance: well nourished Orientation/consciousness: patient oriented x3 Limitations: no limitations Eyes: General: appearance normal, both eyes and all related structures Neck: Neck: full ROM Resp: Effort & Inspection: normal respiratory effort Auscultation: clear to auscultation bilaterally Cardio: Rhythm: regular rhythm GI: Auscultation: normal bowel sounds Skin: General skin exam: no rashes or lesions noted Neuro: General: patient oriented x3, gait normal, no meningeal signs, no focal motor deficits and CN's II-XI intact bilaterally Cognition (Neuro): normal cognition Speech: normal speech Gait exam (Neuro): Normal gait present Sensory Exam: normal sensation Deep tendon reflexes (DTR's): Right triceps reflex intensity grade: 1+, Left triceps reflex intensity grade: 1+, Rt Biceps (C5, C6): 1+, Left biceps reflex intensity grade: 1+, Right brachioradialis reflex intensity grade: 1+, Left brachioradialis reflex intensity grade: 1+, Right patellar reflex intensity grade: 1+, Left patellar reflex intensity grade: 1+, Right ankle reflex intensity grade: 1+ and Left ankle reflex intensity grade: 1+ Plantar Reflex Responses: downgoing: bilateral Coordination: [id number] test normal Extrem: General: normal to inspection Psych: Appearance: well kempt Speech and movement: Normal speech and movement present Affect: normal affect Attitude: cooperative Thought process: Normal thought process present Thought content: Yes Normal thought content present Insight: Fair insight present (Psych) Judgement: Fair judgement present (Psych) Objective Data Vital Signs Vital Signs: Vital Signs - 24 hr 11/10/19 14:00 11/10/19 22:00 11/10/19 22:12 Temperature 36.3 C L 39.0 C H 39.0 C H Pulse Rate 94 89 Respiratory Rate 18 20 Blood Pressure 140/92 H 138/101 H Pulse Oximetry 98 96 11/10/19 23:11 11/11/19 02:00 11/11/19 04:16 Temperature 37.6 C 37.6 C H 37.3 C Pulse Rate 76 Respiratory Rate 18 Blood Pressure 126/72 Pulse Oximetry 96 11/11/19 06:00 11/11/19 06:41 11/11/19 07:41 Temperature 37.9 C H 37.9 C
[2019-11-11 13:18] LABS: Magnesium 1.8 mg/dL (1.6-2.3); Potassium 2.8 mmol/L (3.4-5.0)
--- NOTE | 2019-11-11 17:21 | PM.IMPN ---
Progress Note: A&P Assessment and Plan (1) Sepsis: Qualifiers: Sepsis acute organ dysfunction status: without acute organ dysfunction Sepsis type: sepsis due to unspecified organism Qualified Code(s): A41.9 - Sepsis, unspecified organism Code(s): A41.9 - Sepsis, unspecified organism Status: Acute Assessment and Plan: Present on admission with fever, tachycardia, and elevated lactic acid level to 3.2. Repeat lactic normal. He received a dose of vancomycin and cefepime in the ED but abx not continued. BCx NGTD. CTA showing no PE or airspace disease. Abd soft and GB normal by US. UA noted and UCx essentialy negative. Has been grilling out and has a lot of mosquitoes. LP performed given the concern for EEE or other encephalopathies. CSF protein elevated with normal glucose c/w viral. WNV sent as well. A myriad of labs sent are pending. Abx resumed and to cover for meningitis. Also added acyclovir menigitic doses. Continue to control fevers with Ibuprofen. but seems to be slowly improving (2) Suspected COVID-19 virus infection: Code(s): Z20.828 - Contact with and (suspected) exposure to other viral communicable diseases Status: Acute Assessment and Plan: Somewhat unusual for him to have contracted COVID-19 given his hx but his still works in the community. He does have concerning features of COVID with fever, mental status changes, sore throat, elevated ferritin/LDH/DDimer/CRP. No lung findings but this does not exclude COVID. Swab for SARS-CoV-2 has been collected and is negative.. Continue contact, droplet, and airborne isolation. (3) Elevated LFTs: Code(s): R79.89 - Other specified abnormal findings of blood chemistry Status: Acute Assessment and Plan: AST 695 and ALT 321 with AP 321 and TB 1.7 on admission. Levels trending down. More hepatocellular and suspect related to above complicated by his underlying hepatic steatosis. Acetaminophen level negative. HIV negative. Hepatitis panel negative. Lipase normal. TCK mildly elevated but not felt to be the etiology of the elevated LFTs. Follow up on lab results. (4) Hypokalemia: Code(s): E87.6 - Hypokalemia Status: Acute Assessment and Plan: Potassium 2.6 on admission. This was replaced and normalized. Repeat potassium today now down to 2.8. Replacemetn ordered again. . Continue IV fluids and follow levels. Replace as needed. (5) Hyponatremia: Code(s): E87.1 - Hypo-osmolality and hyponatremia Status: Acute Assessment and Plan: Sodium 125 on admission. Suspect related to dehydration +/- part of the infectious etiology. Consider [place] disease but felt less likely since usually a self limiting disease related to known outbreak. Sodium 133 today. Continue IV fluids. (6) Dehydration: Code(s): E86.0 - Dehydration Status: Acute Assessment and Plan: Mild related to above. Continue IV flluids (7) Oral ulcer: Code(s): K12.1 - Other forms of stomatitis Status: Acute Assessment and Plan: Differential is broad and includes HSV (no history of such or concerns for exposure), Bechet syndrome (no gender ulcerations, skin or eye lesions), HIV (rapid screen negative, no new sexual partners or partner infidelity), inflammatory bowel disease, SLE, nutritional deficiencies, other viral infection. Symptoms better and ulcers appear improved. Continue Popvic's solution given his sore throat. Continue acyclovir. (8) Essential hypertension: Code(s): I10 - Essential (primary) hypertension Status: Acute Assessment and Plan: Blood pressure reviewed on 11/11/2019. Blood pressure is still mildly elevated but better overall. Patient has been noncompliant with his antihypertensive medications. Continue the irbesartan. Continue to monitor and adjust medications accordingly. (9) Anxiety:
--- NOTE | 2019-11-11 20:04 | ECG_ITS ---
Measurements Intervals [place] Rate: 98 P: 21 AL: 148 QRS: -46 QRSD: 106 T: 18 QT: 374 QTc: 479 Interpretive Statements SINUS RHYTHM INCOMPLETE RIGHT BUNDLE BRANCH BLOCK LEFT ANTERIOR FASCICULAR BLOCK BASELINE ARTIFACT- I, II, III, AVL, AVF, V6 ABNORMAL ECG Electronically Signed On 11-12-2019 7:08:13 CDT by Gera Tapia D.O.
[2019-11-11] MEDS: QUEtiapine FUMARATE 25 MG TABLET PO (20:33)
[2019-11-11] MEDS: ENOXAPARIN 40 MG/0.4 ML SYRINGE SUB-Q (20:41)
[2019-11-11] MEDS: NICOTINE (*PBKC) 4 MG GUM PO (21:37)
[2019-11-12] MEDS: SODIUM CHLORIDE 0.9% IV 1,000 ML 125 ML IV CONT (01:40)
[2019-11-12] MEDS: ACYCLOVIR SODIUM IVPB ×3 (05:22→22:22)
[2019-11-12] MEDS: DEXTROSE 5% IVPB ×3 (05:22→22:22)
[2019-11-12] MEDS: WATER IVPB ×3 (05:22→22:22)
[2019-11-12 05:32] VITALS: BP 149/93; PULSE 89; RESP 20; TEMP 37.2; O2SAT 98
[2019-11-12 06:16] LABS: Basophils Percent Auto 0.4 % (0.2-1.2); Eosinophils Absolute Auto 0.1 K/mm3 (0-0.3); Eosinophils Percent Auto 0.9 % (0-4.4); Hematocrit 34.9 % (42.0-52.0); Hemoglobin 12.1 g/dL (14.0-18.0); Immature Granulocyte Absolute 0.03 K/mm3 (0.00-0.031); Immature Granulocyte Percent A 0.5 % (0-0.5); Lymphocytes Absolute Auto 1.32 K/mm3 (0.9-3.2); Lymphocytes Percent Auto 23.7 % (18.3-44.2); Mean Corpuscular HGB Conc 34.7 g/dl (32-36); Mean Corpuscular Hemoglobin 32.4 pg (26-34); Mean Corpuscular Volume 93.6 fl (80-100); Mean Platelet Volume 9.6 fl (7.4-10.4); Monocytes Absolute Auto 2.1 K/mm3 (0.1-0.6); Monocytes Percent Auto 38.4 % (2.6-8.5); Neutrophils Percent Auto 36.1 % (45.5-73.1); Platelet Count Result 196 k/mm3 (150-375); Red Blood Count 3.73 M/mm3 (4.6-6.20); Red Cell Distribution Width 13.9 % (11.5-14.5); White Blood Count 5.6 K/mm3 (4.5-10.0)
[2019-11-12 06:28] LABS: Alanine Aminotransferase 92 U/L (4-50); Albumin Level 3.4 g/dL (3.5-5.1); Alkaline Phosphatase 107 U/L (38-126); Aspartate Amino Transferase 99 U/L (17-59); Bilirubin,Total 0.5 mg/dL (0.2-1.3); Blood Urea Nitrogen 3 mg/dL (9-20); Calcium 8.8 mg/dL (8.4-10.2); Carbon Dioxide 27 mmol/L (22-30); Chloride 98 mmol/L (98-107); Creatine Kinase 341 U/L (55-170); Estimated CRCL calculation 153 ml/min; Estimated Glomerular Filt Rate > 60; Glucose 139 mg/dL (75-110); Potassium 2.8 mmol/L (3.4-5.0); Sodium 134 mmol/L (137-145)
[2019-11-12] MEDS: POTASSIUM CHLORIDE 20 MEQ TABLET 80 MEQ PO (06:46)
[2019-11-12] MEDS: AMLODIPINE BESYLATE 5 MG TABLET PO (08:17)
[2019-11-12] MEDS: TOLNAFTATE 1% POWDER 45 GM BTL 1 APPLIC TOPICAL ×2 (08:18→20:41)
[2019-11-12] MEDS: FAMOTIDINE 20 MG TABLET PO ×2 (08:18→20:39)
--- NOTE | 2019-11-12 12:11 | WPDNEUROPN ---
Progress Note: A&P Additional Plan will need eeg and screening for porphyria Review of Systems Review of Systems: All systems reviewed & are unremarkable except as noted in HPI and below Exam Const: General: cooperative, healthy appearing, comfortable, no acute distress and well developed Nutritional Appearance: average body habitus Orientation/consciousness: oriented to place Limitations: no limitations Eyes: General: appearance normal, both eyes and all related structures Neck: Neck: full ROM Resp: Effort & Inspection: able to speak in complete sentences Cardio: Rate: regular rate Rhythm: regular rhythm GI: Auscultation: normoactive bowel sounds Skin: General skin exam: no rashes or lesions noted Neuro: General: patient oriented x3, gait normal and moves all extremities Cranial nerves: Yes CN's II-XII intact bilaterally, Yes Equal, round and reactive pupils present, Yes Nystagmus not present, Yes Midline tongue present, Yes Normal hearing present and Yes Ability to bilaterally elevate shoulders present Speech: normal speech Motor exam (neuro): 5/5 motor strength present throughout Deep tendon reflexes (DTR's): Right triceps reflex intensity grade: 1+, Left triceps reflex intensity grade: 1+, Rt Biceps (C5, C6): 1+, Left biceps reflex intensity grade: 1+, Right brachioradialis reflex intensity grade: 1+, Left brachioradialis reflex intensity grade: 1+, Right patellar reflex intensity grade: 1+, Left patellar reflex intensity grade: 1+, Right ankle reflex intensity grade: 1+ and Left ankle reflex intensity grade: 1+ Plantar Reflex Responses: downgoing: bilateral Psych: Appearance: grossly normal Affect: Labile affect present Attitude: cooperative Thought process: Impoverished thought process present Thought content: Yes Normal thought content present Insight: Fair insight present (Psych) Judgement: Fair judgement present (Psych) Objective Data Vital Signs Vital Signs: Vital Signs - 24 hr 11/11/19 14:00 11/11/19 22:00 11/11/19 23:12 Temperature 37.2 C 37.1 C Pulse Rate 91 120 H 96 Respiratory Rate 18 20 Blood Pressure 137/84 145/87 H Pulse Oximetry 98 98 11/12/19 05:32 Temperature 37.2 C Pulse Rate 89 Respiratory Rate 20 Blood Pressure 149/93 H Pulse Oximetry 98 Intake/Output Intake/Output: Intake & Output 11/09/19 11/10/19 11/11/1911/11/20 23:59 23:59 23:59 23:59 Intake Total 6138.8 5996.6 4279.2 1808.8 Output Total 2650 1600 703 Balance 3488.8 5996.6 2679.2 1105.8 Meds/Results Medications: Active Medications Generic Name Dose Route Start Last Admin Trade Name Freq PRN Reason Stop Dose Admin Amlodipine Besylate 5 mg 11/11/19 09:00 11/12/19 08:17 Norvasc PO 5 mg QAM ANTHONY Administration Nystatin 60 ml/ Dexamethasone 0 ml 11/09/19 16:30 11/12/19 05:30 Sodium Phosphate 4 mg/ PO 20 ml Acetaminophen 2,880 mg/ ACHS ANTHONY Administration Tetracycline HCl 500 mg/ Diphenhydramine HCl 225 mg Enoxaparin Sodium 40 mg 11/08/19 21:00 11/11/19 20:41 Lovenox SUB-Q 40 mg Q24H ANTHONY Administration Escitalopram Oxalate 10 mg 11/09/19 09:00 11/09/19 08:24 Lexapro PO 10 mg DAILY ANTHONY Administration Famotidine 20 mg 11/08/19 21:00 11/12/19 08:18 Pepcid PO 20 mg Q12HR ANTHONY Administration Ibuprofen 400 mg/ Sodium 104 mls @ 200 mls/hr 11/09/19 16:07 11/11/19 07:13 Chloride IVPB Infused Q6H PRN Infusion Pain Rated 4-6 or fever Acyclovir Sodium 940 mg/ 268.8 mls @ 248.889 mls/hr 11/09/19 22:00 11/12/19 06:27 Dextrose IVPB Infused Q8HR ANTHONY Infusion Ceftriaxone Sodium 2 gm in 100 mls @ 200 mls/hr 11/09/19 20:00 11/12/19 11:57 Rocephin 2 Gm/D5w 100 Ml IVPB Infused Q12HR ANTHONY Infusion Vancomycin HCl 1,750 mg in 500 mls @ 250 mls/hr 11/11/19 08:00 11/12/19 10:18 Vancomycin 1,750 Mg/D5w 500 Ml IVPB 250 mls/hr Q12H ANTHONY Administration Irbesartan 150 mg 11/09/19 09:00 11/10/19 08:18 Avapro PO 150
--- NOTE | 2019-11-12 13:00 | NEURO_ITS ---
TEST: ELECTROENCEPHALOGRAM DIAGNOSIS: ALTERED MENTAL STATUS PATIENT NUMBER: [id number] EEG NUMBER: [id number] RECORDING DATE: 11/12/19 CONDITION OF RECORDING: Drowsy and sleep; patient was constantly moving, shaking, mumbling along with facial twitching. EEG DESCRIPTION: The whole record consists of diffused low voltage 15-18beta activity mixed with intermittent low voltage poorly organized 8-9hz alpha activity posteriorly. Multiple movement and muscle artifacts are noted throughout the tracing. Bilateral symmetrical sleep activity is seen during sleep also compromised by the movement and muscle artifacts. Nonparoxysmal. Nonfocal. Nonlateralizing. IMPRESSION: No significant abnormalities noted. [facility]
[2019-11-12 13:18] LABS: Calcium 9.1 mg/dL (8.4-10.2); Carbon Dioxide 25 mmol/L (22-30); Chloride 100 mmol/L (98-107); Estimated CRCL calculation 153 ml/min; Estimated Glomerular Filt Rate > 60; Glucose 103 mg/dL (75-110); Phosphorus 3.5 mg/dL (2.5-4.5); Potassium 3.6 mmol/L (3.4-5.0); Sodium 135 mmol/L (137-145)
[2019-11-12 13:21] LABS: Blood Urea Nitrogen < 2 mg/dL (9-20)
[2019-11-12 13:33] LABS: Procalcitonin 0.39 ng/mL (<0.10)
[2019-11-12 16:05] LABS: Epstein Barr Virus DNA PCR Not Detected (Not Detected); Source Epstein Barr Virus CSF
[2019-11-12] MEDS: POTASSIUM CHLORIDE 20 MEQ TABLET 40 MEQ PO (16:11)
--- NOTE | 2019-11-12 17:11 | PM.IMPN ---
Progress Note: A&P Assessment and Plan (1) Sepsis: Qualifiers: Sepsis acute organ dysfunction status: without acute organ dysfunction Sepsis type: sepsis due to unspecified organism Qualified Code(s): A41.9 - Sepsis, unspecified organism Code(s): A41.9 - Sepsis, unspecified organism Status: Acute Assessment and Plan: Present on admission with fever, tachycardia, and elevated lactic acid level to 3.2. Repeat lactic normal. He received a dose of vancomycin and cefepime in the ED but abx not continued. BCx NGTD. CTA showing no PE or airspace disease. Abd soft and GB normal by US. UA noted and UCx essentialy negative. Has been grilling out and has a lot of mosquitoes. LP performed given the concern for EEE or other encephalopathies. CSF protein elevated with normal glucose c/w viral. WNV sent as well. A myriad of labs sent are pending. Abx resumed and to cover for meningitis. Also added acyclovir menigitic doses. Continue to control fevers with Ibuprofen. but seems to be slowly improving stop antibiotics and acyclovir when cultures return if negative (2) Suspected COVID-19 virus infection: Code(s): Z20.828 - Contact with and (suspected) exposure to other viral communicable diseases Status: Acute Assessment and Plan: negative swab (3) Elevated LFTs: Code(s): R79.89 - Other specified abnormal findings of blood chemistry Status: Acute Assessment and Plan: AST 695 and ALT 321 with AP 321 and TB 1.7 on admission. Levels trending down. More hepatocellular and suspect related to above complicated by his underlying hepatic steatosis. Acetaminophen level negative. HIV negative. Hepatitis panel negative. Lipase normal. TCK mildly elevated but not felt to be the etiology of the elevated LFTs. Follow up on lab results. (4) Hypokalemia: Code(s): E87.6 - Hypokalemia Status: Acute Assessment and Plan: Potassium 2.6 on admission. This was replaced and normalized. Repeat potassium today 3.6 at 1300. Replacemetn ordered again. . . Replace as needed. (5) Hyponatremia: Code(s): E87.1 - Hypo-osmolality and hyponatremia Status: Acute Assessment and Plan: Sodium 125 on admission. Suspect related to dehydration +/- part of the infectious etiology. Consider [place] disease but felt less likely since usually a self limiting disease related to known outbreak. Sodium 135 today. stop IV fluids. (6) Dehydration: Code(s): E86.0 - Dehydration Status: Acute Assessment and Plan: Mild related to above on admission and with fever down will stop IV flluids (7) Oral ulcer: Code(s): K12.1 - Other forms of stomatitis Status: Acute Assessment and Plan: Differential is broad and includes HSV (no history of such or concerns for exposure), Bechet syndrome (no gender ulcerations, skin or eye lesions), HIV (rapid screen negative, no new sexual partners or partner infidelity), inflammatory bowel disease, SLE, nutritional deficiencies, other viral infection. Symptoms better and ulcers appear improved. Continue Popvic's solution given his sore throat. Continue acyclovir. (8) Essential hypertension: Code(s): I10 - Essential (primary) hypertension Status: Acute Assessment and Plan: Blood pressure reviewed on . Blood pressure is still mildly elevated but better overall. Patient has been noncompliant with his antihypertensive medications. Continue the irbesartan. Continue to monitor and adjust medications accordingly. (9) Anxiety: Code(s): F41.9 - Anxiety disorder, unspecified Status: Acute Assessment and Plan: Mildly anxious but felt related to above and not from SHELLI. Denies taking excessive amounts of Lexapro so feel Serotonin Syndrome less likely. Will hold Lexapro Subjective Date/time seen: 11/12/19 17:11 Interval hist
[2019-11-12 20:08] LABS: Vancomycin Trough 8.9 ug/mL (10.0-20.0)
[2019-11-12] MEDS: ENOXAPARIN 40 MG/0.4 ML SYRINGE SUB-Q (20:37)
[2019-11-12 22:00] VITALS: BP 133/82; PULSE 93; RESP 20; TEMP 37.4; O2SAT 97
[2019-11-13] MEDS: WATER IVPB ×3 (05:57→20:59)
[2019-11-13] MEDS: DEXTROSE 5% IVPB ×3 (05:57→20:59)
[2019-11-13] MEDS: ACYCLOVIR SODIUM IVPB ×3 (05:57→20:59)
[2019-11-13 06:00] VITALS: BP 142/82; PULSE 99; RESP 18; TEMP 37.1; O2SAT 99
[2019-11-13 06:36] LABS: Alanine Aminotransferase 81 U/L (4-50); Albumin Level 3.7 g/dL (3.5-5.1); Alkaline Phosphatase 115 U/L (38-126); Aspartate Amino Transferase 69 U/L (17-59); Bilirubin,Total 0.5 mg/dL (0.2-1.3); Blood Urea Nitrogen 2 mg/dL (9-20); Calcium 9.2 mg/dL (8.4-10.2); Carbon Dioxide 28 mmol/L (22-30); Chloride 98 mmol/L (98-107); Creatine Kinase 123 U/L (55-170); Estimated CRCL calculation 133 ml/min; Estimated Glomerular Filt Rate > 60; Glucose 103 mg/dL (75-110); Potassium 3.3 mmol/L (3.4-5.0); Sodium 135 mmol/L (137-145)
[2019-11-13 07:34] LABS: CMV IgM Antibody <30.00 AU/mL (<30.00)
[2019-11-13 08:00] VITALS: PULSE 99; RESP 18; O2SAT 99
[2019-11-13] MEDS: POTASSIUM CHLORIDE 20 MEQ TABLET 40 MEQ PO ×3 (08:45→16:14)
[2019-11-13 09:25] VITALS: TEMP 36.6
[2019-11-13] MEDS: TOLNAFTATE 1% POWDER 45 GM BTL 1 APPLIC TOPICAL ×2 (09:41→21:04)
[2019-11-13] MEDS: AMLODIPINE BESYLATE 5 MG TABLET PO (09:41)
[2019-11-13] MEDS: FAMOTIDINE 20 MG TABLET PO ×2 (09:41→20:59)
--- NOTE | 2019-11-13 11:19 | WPDNEUROPN ---
Progress Note: A&P Assessment and Plan (1) Anxiety: Code(s): F41.9 - Anxiety disorder, unspecified Status: Acute (2) Dehydration: Code(s): E86.0 - Dehydration Status: Acute (3) Hyponatremia: Code(s): E87.1 - Hypo-osmolality and hyponatremia Status: Acute (4) Hypokalemia: Code(s): E87.6 - Hypokalemia Status: Acute (5) Elevated LFTs: Code(s): R79.89 - Other specified abnormal findings of blood chemistry Status: Acute (6) Suspected COVID-19 virus infection: Code(s): Z20.828 - Contact with and (suspected) exposure to other viral communicable diseases Status: Acute (7) Oral ulcer: Code(s): K12.1 - Other forms of stomatitis Status: Acute (8) Essential hypertension: Code(s): I10 - Essential (primary) hypertension Status: Acute (9) Sepsis: Qualifiers: Sepsis acute organ dysfunction status: without acute organ dysfunction Sepsis type: sepsis due to unspecified organism Qualified Code(s): A41.9 - Sepsis, unspecified organism Code(s): A41.9 - Sepsis, unspecified organism Status: Acute (10) Acute hypokalemia: Code(s): E87.6 - Hypokalemia Status: Acute (11) Transaminitis: Code(s): R74.0 - Nonspecific elevation of levels of transaminase and lactic acid dehydrogenase [LDH] Status: Acute (12) Establishing care with new doctor, encounter for: Code(s): Z76.89 - Persons encountering health services in other specified circumstances Status: Acute Additional Plan stable Review of Systems Review of Systems: All systems reviewed & are unremarkable except as noted in HPI and below Exam Const: General: cooperative, healthy appearing, comfortable, no acute distress, well developed, alert and awake Nutritional Appearance: well nourished Orientation/consciousness: patient oriented x3 Limitations: no limitations HENMT: Head: normal to inspection General nose exam: Normal external nose present and No nasal discharge present Face and sinus: normal facial exam Mouth: Yes Normal oral and palatal mucosa present Eyes: General: appearance normal, both eyes and all related structures Neck: Neck: full ROM Resp: Effort & Inspection: normal respiratory effort Auscultation: clear to auscultation bilaterally Cardio: Rate: regular rate Rhythm: regular rhythm GI: Auscultation: normal bowel sounds Skin: General skin exam: no rashes or lesions noted Neuro: General: patient oriented x3, gait normal, no focal motor deficits and CN's II-XI intact bilaterally Cognition (Neuro): normal cognition Speech: normal speech Gait exam (Neuro): Normal gait present Deep tendon reflexes (DTR's): Right triceps reflex intensity grade: 1+, Left triceps reflex intensity grade: 1+, Rt Biceps (C5, C6): 1+, Left biceps reflex intensity grade: 1+, Right brachioradialis reflex intensity grade: 1+, Left brachioradialis reflex intensity grade: 1+, Right patellar reflex intensity grade: 1+, Left patellar reflex intensity grade: 1+, Right ankle reflex intensity grade: 1+ and Left ankle reflex intensity grade: 1+ Plantar Reflex Responses: downgoing: bilateral Extrem: General: normal to inspection Psych: Appearance: grossly normal Objective Data Vital Signs Vital Signs: Vital Signs - 24 hr 11/12/19 22:00 11/13/19 06:00 11/13/19 09:25 Temperature 37.4 C 37.1 C 36.6 C Pulse Rate 93 99 Respiratory Rate 20 18 Blood Pressure 133/82 142/82 H Pulse Oximetry 97 99 Intake/Output Intake/Output: Intake & Output 11/10/19 11/11/19 11/12/19 11/13/19 23:59 23:59 23:59 23:59 Intake Total 5996.6 4279.2 3346.4 1118.8 Output Total 1600 703 Balance 5996.6 2679.2 2643.4 1118.8 Meds/Results Medications: Active Medications Generic Name Dose Route Start Last Admin Trade Name Freq PRN Reason Stop Dose Admin Amlodipine Besylate 5 mg 11/11/19 09:00 11/13/19 09:41 Norvasc PO 5 mg QAM S
[2019-11-13 14:00] VITALS: BP 134/84; PULSE 109; RESP 18; TEMP 36.7; O2SAT 98
[2019-11-13 15:39] LABS: VDRL Quantitative CSF Nonreactive (Nonreactive)
--- NOTE | 2019-11-13 15:43 | PM.IMPN ---
Progress Note: A&P Assessment and Plan (1) Sepsis: Qualifiers: Sepsis acute organ dysfunction status: without acute organ dysfunction Sepsis type: sepsis due to unspecified organism Qualified Code(s): A41.9 - Sepsis, unspecified organism Code(s): A41.9 - Sepsis, unspecified organism Status: Acute Assessment and Plan: Present on admission with fever, tachycardia, and elevated lactic acid level to 3.2. Repeat lactic normal. He received a dose of vancomycin and cefepime in the ED but abx not continued. BCx NGTD. CTA showing no PE or airspace disease. Abd soft and GB normal by US. UA noted and UCx essentialy negative. Has been grilling out and has a lot of mosquitoes. LP performed given the concern for EEE or other encephalopathies. CSF protein elevated with normal glucose c/w viral. WNV sent as well. . Abx resumed and to cover for meningitis and d/c today with cultures still neg. Also acyclovir menigitic doses with HSV by PCR still pending. but seems to be slowly improving (2) Suspected COVID-19 virus infection: Code(s): Z20.828 - Contact with and (suspected) exposure to other viral communicable diseases Status: Acute Assessment and Plan: negative swab (3) Elevated LFTs: Code(s): R79.89 - Other specified abnormal findings of blood chemistry Status: Acute Assessment and Plan: AST 695 and ALT 321 with AP 321 and TB 1.7 on admission. Levels trending down with AST at 69 and ALT 81 today. More hepatocellular and suspect related to above complicated by his underlying hepatic steatosis. Acetaminophen level negative. HIV negative. Hepatitis panel negative. Lipase normal. TCK mildly elevated but normal today.. (4) Hypokalemia: Code(s): E87.6 - Hypokalemia Status: Acute Assessment and Plan: Potassium 2.6 on admission. This was replaced and normalized. Repeat potassium today 3.3. Replacement ordered again. . . (5) Hyponatremia: Code(s): E87.1 - Hypo-osmolality and hyponatremia Status: Acute Assessment and Plan: Sodium 125 on admission. Suspect related to dehydration +/- part of the infectious etiology. Consider [place] disease but felt less likely since usually a self limiting disease related to known outbreak. Sodium 135 today. stoppe IV fluids. 11/11 (6) Dehydration: Code(s): E86.0 - Dehydration Status: Acute Assessment and Plan: Mild related to above on admission and with fever down will stopped IV flluids 11/11 (7) Oral ulcer: Code(s): K12.1 - Other forms of stomatitis Status: Acute Assessment and Plan: Differential is broad and includes HSV (no history of such or concerns for exposure), HIV (rapid screen negative, ), other viral infection. Symptoms better and ulcers appear improved. Continue Popvic's solution given his sore throat. Continue acyclovir. (8) Essential hypertension: Code(s): I10 - Essential (primary) hypertension Status: Acute Assessment and Plan: Blood pressure reviewed on 11/13/2019. Blood pressure is better overall. Patient has been noncompliant with his antihypertensive medications. Continue the irbesartan and amlodipine. (9) Anxiety: Code(s): F41.9 - Anxiety disorder, unspecified Status: Acute Assessment and Plan: Mildly anxious but felt related to above Denies taking excessive amounts of Lexapro but Will hold Lexapro for now Subjective Date/time seen: 11/13/19 15:43 Interval history: Date of visit 11/12 39yo male here for cough, fever, SOB and oral ulcers. Patient alert and much less confused. he denies cough, SOB, or CP. No n/v. He feels the ulcers are better. He states is better eating better and much more conversant today. Exam Narrative: Exam Narrative: Tm 37.2 36.7 now 134/84 100 Gen: WNWD male NARD lying in bed HEENT: . Moist mucous membrane
[2019-11-13] MEDS: ENOXAPARIN 40 MG/0.4 ML SYRINGE SUB-Q (20:59)
[2019-11-13 22:00] VITALS: BP 133/90; PULSE 98; RESP 18; TEMP 36.3; O2SAT 95
[2019-11-14 01:39] LABS: Herpes Simplex Type 1 DNA PCR Detected (Not Detected); Herpes Simplex Type 2 DNA PCR Not Detected (Not Detected)
[2019-11-14] MEDS: WATER IVPB ×3 (05:38→21:20)
[2019-11-14] MEDS: DEXTROSE 5% IVPB ×3 (05:38→21:20)
[2019-11-14] MEDS: ACYCLOVIR SODIUM IVPB ×3 (05:38→21:20)
[2019-11-14 06:00] VITALS: BP 142/73; PULSE 99; RESP 20; TEMP 36.9; O2SAT 95
[2019-11-14 07:01] LABS: Basophils Absolute Auto 0.1 K/mm3 (0.0-0.1); Eosinophils Absolute Auto 0.1 K/mm3 (0-0.3); Eosinophils Percent Auto 1.3 % (0-4.4); Hematocrit 40.3 % (42.0-52.0); Hemoglobin 13.4 g/dL (14.0-18.0); Immature Granulocyte Absolute 0.07 K/mm3 (0.00-0.031); Immature Granulocyte Percent A 1.1 % (0-0.5); Lymphocytes Absolute Auto 1.85 K/mm3 (0.9-3.2); Lymphocytes Percent Auto 29.3 % (18.3-44.2); Mean Corpuscular HGB Conc 33.3 g/dl (32-36); Mean Corpuscular Hemoglobin 32.1 pg (26-34); Mean Corpuscular Volume 96.4 fl (80-100); Mean Platelet Volume 9.5 fl (7.4-10.4); Monocytes Absolute Auto 1.7 K/mm3 (0.1-0.6); Monocytes Percent Auto 27.1 % (2.6-8.5); Neutrophils Absolute Auto 2.5 K/mm3 (1.3-6.7); Neutrophils Percent Auto 40.2 % (45.5-73.1); Platelet Count Result 387 k/mm3 (150-375); Red Blood Count 4.18 M/mm3 (4.6-6.20); Red Cell Distribution Width 14.4 % (11.5-14.5); White Blood Count 6.3 K/mm3 (4.5-10.0)
[2019-11-14 07:11] LABS: Alanine Aminotransferase 65 U/L (4-50); Albumin Level 3.6 g/dL (3.5-5.1); Alkaline Phosphatase 105 U/L (38-126); Aspartate Amino Transferase 60 U/L (17-59); Bilirubin,Total 0.5 mg/dL (0.2-1.3); Blood Urea Nitrogen 5 mg/dL (9-20); Carbon Dioxide 28 mmol/L (22-30); Chloride 98 mmol/L (98-107); Estimated CRCL calculation 133 ml/min; Estimated Glomerular Filt Rate > 60; Glucose 155 mg/dL (75-110); Potassium 3.4 mmol/L (3.4-5.0); Sodium 134 mmol/L (137-145)
[2019-11-14] MEDS: AMLODIPINE BESYLATE 5 MG TABLET PO (07:21)
[2019-11-14] MEDS: FAMOTIDINE 20 MG TABLET PO ×2 (07:22→21:20)
[2019-11-14 07:24] VITALS: PULSE 99; RESP 20; O2SAT 95
[2019-11-14] MEDS: TOLNAFTATE 1% POWDER 45 GM BTL 1 APPLIC TOPICAL ×2 (10:08→21:21)
[2019-11-14] MEDS: POTASSIUM CHLORIDE 20 MEQ TABLET 40 MEQ PO ×3 (10:08→16:53)
[2019-11-14] MEDS: PANTOPRAZOLE 40 MG TABLET PO ×2 (12:00→21:20)
--- NOTE | 2019-11-14 12:21 | PCDIET ---
Nutrition LOS Complete: Pt current nutrition is Regular. Nutrition recommendation: Agree Last recorded weight is 93.8 kg. Bowel Motility:BM+ today Labs Reviewed:Glucose 155, Na 134 Meds Noted: Lexapro, Lovenox, Morphine Additional Notes: Seeing pt today due to LOS. Pt is eating an average of 40% of meals. He states he is getting bad GERD and that is reducing appetite. He takes one nexium per day at home. He just spoke the nurse regarding this. Pt encouraged to chew foods well, leave fluids outside of meals, and stick to bland foods at this time. Pt encouraged to try digestive enzymes with meals upon d/c vs. nexium after meals and avoid high fat/high sugar, acidic foods to reduce GERD symptoms. No other nutrition needs at this time. We will continue to monitor every seven days for adequate intake and wt maintenance.
--- NOTE | 2019-11-14 13:16 | PM.IMPN ---
Progress Note: A&P Assessment and Plan (1) Sepsis: Qualifiers: Sepsis acute organ dysfunction status: without acute organ dysfunction Sepsis type: sepsis due to unspecified organism Qualified Code(s): A41.9 - Sepsis, unspecified organism Code(s): A41.9 - Sepsis, unspecified organism Status: Acute Assessment and Plan: Present on admission with fever, tachycardia, and elevated lactic acid level to 3.2. Repeat lactic normal. He received a dose of vancomycin and cefepime in the ED. BCx NGTD. CTA showing no PE or airspace disease. Abd soft and GB normal by US. UA noted and UCx essentialy negative. Has been grilling out and has a lot of mosquitoes. LP performed given the concern for EEE or other encephalopathies. CSF protein elevated with normal glucose c/w viral. WNV sent as well. . Abx r to cover for meningitis and d/c 11/12 with cultures still neg. 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 Definetly improving. ID opinion about duration of IV rx (2) Suspected COVID-19 virus infection: Code(s): Z20.828 - Contact with and (suspected) exposure to other viral communicable diseases Status: Acute Assessment and Plan: negative swab (3) Elevated LFTs: Code(s): R79.89 - Other specified abnormal findings of blood chemistry Status: Acute Assessment and Plan: AST 695 and ALT 321 with AP 321 and TB 1.7 on admission. Levels trending down with AST at 60 and ALT 68 today. More hepatocellular and suspect related to above . Acetaminophen level negative. HIV negative. Hepatitis panel negative. Lipase normal. TCK mildly elevated but normal /.. (4) Hypokalemia: Code(s): E87.6 - Hypokalemia Status: Acute Assessment and Plan: Potassium 2.6 on admission. This was replaced and normalized. Repeat potassium today 3.4. Replacement ordered again. continues to require high doses for replacement . . (5) Hyponatremia: Code(s): E87.1 - Hypo-osmolality and hyponatremia Status: Acute Assessment and Plan: Sodium 125 on admission. Suspect related to dehydration +/- part of the infectious etiology. Consider [place] disease but felt less likely since usually a self limiting disease related to known outbreak. Sodium 134 today. stoppe IV fluids. 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 Symptoms better and ulcers appear improved. Continue Popvic's solution given his sore throat. Continue acyclovir. (8) Essential hypertension: Code(s): I10 - Essential (primary) hypertension Status: Acute Assessment and Plan: Blood pressure reviewed on 11/14/2019. Blood pressure is better overall. Patient has been noncompliant with his antihypertensive medications. Continue the irbesartan and amlodipine. (9) Anxiety: Code(s): F41.9 - Anxiety disorder, unspecified Status: Acute Assessment and Plan: Mildly anxious but felt related to above Denies taking excessive amounts of Lexapro but Will hold Lexapro for now Subjective Date/time seen: 11/14/19 13:16 Interval history: Date of visit 11/13 39yo male here for cough, fever, SOB and oral ulcers. Patient alert and no longer confused. he denies cough, SOB, or CP or headache. No n/v. He feels the ulcers are better. He states is better eating better and much more conversant today. Exam Narrative: Exam Narrative: afebrile 140/72 94 Gen: WNWD male NARD lying in bed HEENT: . Moist mucous membranes. shallow ulcers noted on the lips and tongue that are almost totally healed
[2019-11-14 13:25] LABS: West Nile Virus, IgM <0.90 index (<0.90)
[2019-11-14 14:00] VITALS: BP 124/76; PULSE 125; RESP 18; TEMP 36.6; O2SAT 97
--- NOTE | 2019-11-14 14:13 | WPDNEUROPN ---
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 Status: Acute Additional Plan the Infectious Disease consult is pending and based on their opinion the patient can be discharged in my opinion on oral acyclovir or else if they decide not to put him on anything as he is positive for type 1 in his mouth and the most common reason of people having the encephalitis is due to herpes type 2 to my recollection in any event if the Infectious Disease feel differently than they can decide as was I am concerned he can be discharged from the neurological standpoint whatever it is recommended by the Infectious Disease Review of Systems Review of Systems: All systems reviewed & are unremarkable except as noted in HPI and below Exam Const: General: comfortable and no acute distress HENMT: General nose exam: Normal nares present Mouth: Yes moist mucous membranes Eyes: General: appearance normal, both eyes and all related structures Neck: Neck: supple and no JVD Resp: Effort & Inspection: normal respiratory effort Auscultation: clear to auscultation bilaterally Cardio: Rate: regular rate Rhythm: regular rhythm Skin: General skin exam: normal color and no rashes or lesions noted Neuro: Other: patient is well oriented time place and person he has no more confused and he understand what he was doing before he denies any headache nausea vomiting chest pain shortness of breath he does not have any cerebral or cerebellar deficit at all Extrem: General: normal to inspection Psych: Mental Status: mental status grossly normal Objective Data Vital Signs Vital Signs: Vital Signs - 24 hr 11/13/19 22:00 11/14/19 06:00 11/14/19 07:24 Temperature 36.3 C L 36.9 C Pulse Rate 98 99 99 Respiratory Rate 18 20 20 Blood Pressure 133/90 142/73 H Pulse Oximetry 95 95 95 Intake/Output Intake/Output: Intake & Output 11/11/19 11/12/19 11/13/19 11/14/19 23:59 23:59 23:59 23:59 Intake Total 4279.2 3346.4 3006.4 488.8 Output Total 1600 703 Balance 2679.2 2643.4 3006.4 488.8 Meds/Results Medications: Active Medications Generic Name Dose Route Start Last Admin Trade Name Freq PRN Reason Stop Dose Admin Amlodipine Besylate 5 mg 11/11/19 09:00 11/14/19 07:21 Norvasc PO 5 mg QAM ANTHONY Administration Nystatin 60 ml/ Dexamethasone 0 ml 11/09/19 16:30 11/14/19 11:23 Sodium Phosphate 4 mg/ PO 20 ml Acetaminophen 2,880 mg/ ACHS ANTHONY Administration Tetracycline HCl 500 mg/ Diphenhydramine HCl 225 mg Enoxaparin Sodium 40 mg 11/08/19 21:00 11/13/19 20:59 Lovenox SUB-Q 40 mg Q24H ANTHONY Administration Escitalopram Oxalate 10 mg 11/09/19 09:00 11/09/19 08:24 Lexapro PO 10 mg DAILY ANTHONY Administration Famotidine 20 mg 11/08/19 21:00 11/14/19 07:22 Pepcid PO 20 mg Q12HR ANTHONY Administration Acyclovir Sodium 940 mg/ 268.8 mls @ 248.889 mls/hr 11/09/19 22:00 11/14/19 13:25 Dextrose IVPB 248 mls/hr Q8HR ANTHONY Administration Irbesartan 150 mg 11/09/19 09:00 11/10/19 08:18 Avapro PO 150 mg DAILY ANTHONY Administration Morphine Sulfate 4 mg 11/08/19 14:39 Morphine Sulfate Inj IV PUSH Q2H PRN Pain Rated 7-10 Nicotine Polacrilex 4 mg 11/11/19 20:27 11/11/19 21:37 Nicorette 4 Mg Gum PO 4 mg PRN PRN Administration Nicotine Cravings Ondansetron HCl 4 mg 11/08/19 14:39 Zofran Inj IV PUSH Q4H PRN Nausea Pantoprazole Sodium 40 mg 11/14/19 21:00 Protonix PO HS [facility] Potassium Chloride 40 meq 11/14/19 17:00 Kcl Tablet PO 11/14/19 17:01 ONCE ONE Tolnaftate 1 applic
[2019-11-14] MEDS: MAG HYDROX/AL HYDROX/SIMETH 30 ML UDC PO (18:05)
--- NOTE | 2019-11-14 18:37 | CONS_ITS ---
DATE OF CONSULTATION: 11/14/2019 REASON FOR CONSULTATION: Meningoencephalitis. HISTORY OF PRESENT ILLNESS: The patient is a 39-year-old male who has previously been healthy other than hypertension. He was admitted through the emergency room on the with acute onset of confusion with disorientation and hallucinations, also fever at home, chills, shortness of breath, sore throat, and hoarseness due to dry mouth. Subjectively, diaphoresis and oral ulcerations have been noted for approximately 3 days. Here, he had a lumbar puncture performed. He has been on acyclovir now day #6 and consultation requested today. He is previously on antibacterials, now withdrawn. He feels much better with normal mentation. Subjectively, no headaches, nausea, vomiting, dizziness, incoordination, nor weakness. ALLERGIES: NONE KNOWN. MEDICATIONS: List reviewed. He was on no immunosuppressants nor antimicrobials in the last 3 months for any purpose. He has occasional sinusitis for which he takes azithromycin in the 6 tablets package with success. HABITS: No illicit drugs. Social drinker. Chewing tobacco. PAST MEDICAL HISTORY: Hypertension, anxiety, GERD, lipoma excision from his back. FAMILY HISTORY: No recurrent infections in his family and no immunocompromising illnesses that he is aware of. 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 His marriage is going through a divorce. Lives locally. Two sons. He fishes on occasion, though not in the last 3 months. No livestock exposure. No animal bites nor any insect bites that stick out in his mind. REVIEW OF SYSTEMS: No recurrent infections. No prolonged antibiotics in the past. 14-point review otherwise negative. PHYSICAL EXAMINATION: GENERAL: This is a middle-aged male who appears actual age. No acute distress. VITAL SIGNS: His temperature on arrival 37.7 and that evening up to 39.4. Following day, T-max 38.6, 39.0 on the , but has been afebrile vssoy-dwx-h-half days. 142/73, 99, 20, 95% room air. SKIN: No rashes. Warm and dry. No breaks in the skin. NODES: No axillary or cervical adenopathy. EENT: The conjunctivae are normal. The pupils are equal, round, and reactive to light. Extraocular movements are normal. Gaze is conjugate. The oropharynx, oral mucosa normal. NECK: No meningismus, mass, or tenderness. LUNGS: Clear to auscultation and percussion. BACK: Nontender. No CVAT. CARDIAC: Regular rate and rhythm. Normal S1, S2. No murmur, gallop, or rub. ABDOMEN: Nontender, soft. No organomegaly. No masses. Nontender. EXTREMITIES: Without clubbing, cyanosis, or edema. No venous varicosities. No calf tenderness. NEUROLOGIC: Awake, alert, oriented, appropriate. Motor strength is 5/5. Cranial nerves are grossly intact. Speech is fluent and no dysarthria. He has no tremor and coordination is grossly intact. LABORATORY DATA: His HSV1 PCR from the spinal fluid is reactive. Blood cultures, no growth. His CSF culture also no growth. White count 6.3, hemoglobin 13.4, and platelets of 387. Differential reviewed and shows some monocytosis. His sodium mildly low, glucose 155, otherwise chemistry panel is normal. Transaminases down to 60 and 65 after being at 425 and 231 initially. His alkaline phosphatase was 144. His CPK was high as well. Urinalysis, no evidence of infection. RADIOLOGICAL DATA: Brain MRI is normal as his head CT and chest x-ray. ASSESSMENT: 1. Fever, confusion, sore throat, or ulcerations suggestive of HSV1 meningoencephalitis. I reviewed his other CSF findings, which showed a bloody tap and also pleocytosis with PMN predominance. Other causes of his confusion are unlikely including toxic metabolic drug ischemic or other infectious etiologies. Oth
[2019-11-14] MEDS: ENOXAPARIN 40 MG/0.4 ML SYRINGE SUB-Q (21:20)
[2019-11-14 22:00] VITALS: BP 135/81; PULSE 106; RESP 16; TEMP 36.8; O2SAT 97
[2019-11-15 06:00] VITALS: BP 131/82; PULSE 101; RESP 18; TEMP 36.7; O2SAT 97
[2019-11-15] MEDS: DEXTROSE 5% IVPB ×3 (06:04→21:28)
[2019-11-15] MEDS: WATER IVPB ×3 (06:04→21:28)
[2019-11-15] MEDS: ACYCLOVIR SODIUM IVPB ×3 (06:04→21:28)
[2019-11-15 08:24] LABS: Immunoglobulin G 1160 mg/dL (700-1600); Immunoglobulin M 209 mg/dL (40-230)
[2019-11-15 08:40] LABS: Blood Urea Nitrogen 13 mg/dL (9-20); Calcium 9.3 mg/dL (8.4-10.2); Carbon Dioxide 27 mmol/L (22-30); Chloride 100 mmol/L (98-107); Estimated CRCL calculation 29 ml/min; Estimated Glomerular Filt Rate 20; Glucose 135 mg/dL (75-110); Potassium 4.3 mmol/L (3.4-5.0); Sodium 133 mmol/L (137-145)
[2019-11-15 08:43] LABS: Immunoglobulin A < 40 mg/dL (70-400)
[2019-11-15] MEDS: TOLNAFTATE 1% POWDER 45 GM BTL 1 APPLIC TOPICAL ×2 (09:08→21:28)
[2019-11-15] MEDS: AMLODIPINE BESYLATE 5 MG TABLET PO (09:08)
[2019-11-15] MEDS: FAMOTIDINE 20 MG TABLET PO ×2 (09:08→21:29)
--- NOTE | 2019-11-15 12:10 | WPDGICN ---
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 He is being treated with Acyclovir IV PPI BID Oral suspension narcotic <Tory ReeceElizabeth Manrique APRN - Last Filed: 11/15/19 14:21> (2) Elevated LFTs: Code(s): R79.89 - Other specified abnormal findings of blood chemistry <Tory ReeceElizabeth Manrique APRN - Last Filed: 11/15/19 14:21> Status: Acute <Tory ReeceElizabeth BurtonMATI nolascoN - Last Filed: 11/15/19 14:21> Assessment and Plan: This could be secondary to viral infection. These have since normalized. There is some underlying fatty liver noted on US Follow low fat diet Alcohol cessation encouraged <Tory ReeceElizabeth BurtonCIARA nolasco - Last Filed: 11/15/19 14:21> (3) Gastroesophageal reflux disease: Code(s): K21.9 - Gastro-esophageal reflux disease without esophagitis <Tory ReeceElizabeth BurtonCIARA nolasco - Last Filed: 11/15/19 14:21> Status: Acute <Tory ReeceElizabeth BurtonMATI nolascoN - Last Filed: 11/15/19 14:21> Assessment and Plan: Increase PPI BID <Toryecho Manrique APRN - Last Filed: 11/15/19 14:21> (4) Hepatic steatosis: Code(s): K76.0 - Fatty (change of) liver, not elsewhere classified <Tory ReeceElizabeth Manrique APRN - Last Filed: 11/15/19 14:21> Status: Acute <Tory M. BurtonMATI nolascoN - Last Filed: 11/15/19 14:21> Assessment and Plan: Low fat diet. Lifestyle modifications <Toryecho Manrique APRN - Last Filed: 11/15/19 14:21> Additional Plan I have personally reviewed the chart and examined the patient. I agree with the above note. Abdomen soft/NT. Karey clears. A. 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 Abnormal imaging-digestive with abnormal LFT's - Hepatic Steatosis on U/S - Likely contribution from HSV - LFT's have improved; follow to resolution Thanks, ARLETTE [phone] <Zac Parkinson MD - Last Filed: 11/15/19 14:37> GI Consult Note Consult date/time: 11/15/19 12:10 <Tory Manrique APRN - Last Filed: 11/15/19 14:21> HPI: Gaeg Saeed is a 39 year old male presented to ED for confusion, sob and fevers as they were concerned for COVID. 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 He does report several weeks ago he had some lesions in his mouth and lips which has since resolved. GI was consulted for odnophagia that he describes as burning sensation from his [place] apple to his stomach. He says this is occuring with any food in puts in his mouth. He does have hx of GERD and takes Nexium at home which does not give him adequate control either. He denies any dysphagia, bloody emesis, constipation, diarrhea or melena. Denies abnormal weight loss. Family hx of colon cancer in paternal grandmother. He has never had an EGD or colonoscopy in the past. LFT were also noted to be elevated on admission with AST 695, ALT 321 and alk phos 202. Acute hepatitis and HIV were negative. He does report 5 beers per weekend. These have since resolved. Abd US was obtained that showed fatty liver. <Tory Manrique APRN - Last Filed: 11/15/19 14:21> Review of Systems Review of Systems: All systems reviewed & are unremarkable except as noted in HPI and below <Tory Manrique APRN - Last Filed: 11/15/19 14:21> Gastrointestinal: Gastrointestinal: Reports as per HPI <Tory Manrique APRN - Last Filed: 11/15/19 14:21> [facility] Past Medical History Medical History: Medical History (Updated 11/15/19 @ 12:25 by Tory M. Burton, LOT TECHNICIAN) Anxiety Essential hypertension Gastroesophageal reflux disease <Tory Manrique APRN - Last Filed: 11/15/19 14:21> Surgical History Surgical History: Surgical History (Updated 11/08/19 @ 17:2
[2019-11-15 14:00] VITALS: BP 135/78; PULSE 115; RESP 16; TEMP 36.2; O2SAT 96
[2019-11-15] MEDS: PANTOPRAZOLE 40 MG TABLET PO ×2 (14:26→21:29)
--- NOTE | 2019-11-15 14:46 | PM.IMPN ---
Progress Note: A&P Assessment and Plan (1) Sepsis: Qualifiers: Sepsis acute organ dysfunction status: without acute organ dysfunction Sepsis type: sepsis due to unspecified organism Qualified Code(s): A41.9 - Sepsis, unspecified organism Code(s): A41.9 - Sepsis, unspecified organism Status: Acute Assessment and Plan: Present on admission with fever, tachycardia, and elevated lactic acid level to 3.2. Repeat lactic normal. He received a dose of vancomycin and cefepime in the ED. BCx NGTD. CTA showing no PE or airspace disease. Abd soft and GB normal by US. UA noted and UCx essentialy negative. Had been grilling out and has a lot of mosquitoes. LP performed given the concern for EEE or other encephalopathies. CSF protein elevated with normal glucose c/w viral. WNV sent as well. . Abx r to cover for meningitis and d/c 11/12 with cultures still neg. Also acyclovir menigitic doses with HSV by PCR returning + for type 1 today(D#7). Definetly improving. ID suggest full 7 days (2) Suspected COVID-19 virus infection: Code(s): Z20.828 - Contact with and (suspected) exposure to other viral communicable diseases Status: Acute Assessment and Plan: negative swab (3) Elevated LFTs: Code(s): R79.89 - Other specified abnormal findings of blood chemistry Status: Acute Assessment and Plan: AST 695 and ALT 321 with AP 321 and TB 1.7 on admission. Levels trending down with AST at 60 and ALT 65 7/3. More hepatocellular and suspect related to above . Acetaminophen level negative. HIV negative. Hepatitis panel negative. Lipase normal. TCK mildly elevated but normal 7/2.. (4) Hypokalemia: Code(s): E87.6 - Hypokalemia Status: Acute Assessment and Plan: Potassium 2.6 on admission. This was replaced and normalized. Repeat potassium today 4.3. . (5) Hyponatremia: Code(s): E87.1 - Hypo-osmolality and hyponatremia Status: Acute Assessment and Plan: Sodium 125 on admission. Suspect related to dehydration +/- part of the infectious etiology. Consider [place] disease but felt less likely since usually a self limiting disease related to known outbreak. Sodium 133 today. stopped IV fluids. 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 Symptoms better and ulcers appear improved. Continue Popvic's solution given his sore throat. Continue acyclovir. (8) Essential hypertension: Code(s): I10 - Essential (primary) hypertension Status: Acute Assessment and Plan: Blood pressure reviewed on 11/15/2019. Blood pressure is better overall. Patient has been noncompliant with his antihypertensive medications. Continue the amlodipine and ARB continues on hold. (9) Anxiety: Code(s): F41.9 - Anxiety disorder, unspecified Status: Acute Assessment and Plan: Mildly anxious but felt related to above Denies taking excessive amounts of Lexapro but Will hold Lexapro for now (10) Elevated serum creatinine: Code(s): R79.89 - Other specified abnormal findings of blood chemistry Status: Acute Assessment and Plan: Creatinine today at 3.4. Will repeat to check validity. Large increase in just 24 hours from normal at 0.7. Has had IV contrast, IV vancomycin, and IV ibuprofen since admission. Antibiotics and ibuprofen discontinued 48 hours ago CK was mildly elevated but returned normal on 11/12 Repeat creatinine as stated, check urine eosinophils, if repeat still high renal sonogram followed by returned to IV hydration Subjective Date/time seen: 11/15/19 14
[2019-11-15 16:56] LABS: Add Urine Microscopic? NO; Appearance Urine Clear (Clear); Bilirubin Urine Negative (Negative); Blood Urine Negative (Negative); Color Urine Straw (Yellow); Glucose Urine UA Negative (Negative); Ketones Urine Negative (Negative); Leukocyte Esterase Ur Negative LEU/UL (NEGATIVE); Nitrate Urine Negative (Negative); Protein Urine Negative (Negative); Specific Grav Ur 1.008 (1.001-1.035); Urobilinogen Urine Negative mg/dL (<2.0)
[2019-11-15 17:05] LABS: Blood Urea Nitrogen 16 mg/dL (9-20); Calcium 9.5 mg/dL (8.4-10.2); Carbon Dioxide 23 mmol/L (22-30); Chloride 101 mmol/L (98-107); Estimated CRCL calculation 26 ml/min; Estimated Glomerular Filt Rate 17; Glucose 122 mg/dL (75-110); Potassium 4.4 mmol/L (3.4-5.0); Sodium 135 mmol/L (137-145)
[2019-11-15] MEDS: SODIUM CHLORIDE 0.9% IV 1,000 ML 100 ML IV CONT (18:08)
[2019-11-15] MEDS: ENOXAPARIN 40 MG/0.4 ML SYRINGE SUB-Q (21:29)
[2019-11-15 22:00] VITALS: BP 141/84; PULSE 102; RESP 16; TEMP 36.8; O2SAT 98
[2019-11-16] MEDS: ACYCLOVIR SODIUM IVPB ×3 (05:20→21:10)
[2019-11-16] MEDS: SODIUM CHLORIDE 0.9% IV 1,000 ML 100 ML IV CONT ×2 (05:20→16:41)
[2019-11-16] MEDS: DEXTROSE 5% IVPB ×3 (05:20→21:10)
[2019-11-16] MEDS: WATER IVPB ×3 (05:20→21:10)
[2019-11-16 06:00] VITALS: BP 142/74; PULSE 90; RESP 16; TEMP 36.7; O2SAT 94
[2019-11-16 06:41] LABS: Alanine Aminotransferase 37 U/L (4-50); Albumin Level 3.5 g/dL (3.5-5.1); Alkaline Phosphatase 90 U/L (38-126); Aspartate Amino Transferase 40 U/L (17-59); Bilirubin,Total 0.6 mg/dL (0.2-1.3); Blood Urea Nitrogen 17 mg/dL (9-20); Calcium 8.9 mg/dL (8.4-10.2); Carbon Dioxide 27 mmol/L (22-30); Chloride 101 mmol/L (98-107); Estimated CRCL calculation 26 ml/min; Estimated Glomerular Filt Rate 18; Glucose 126 mg/dL (75-110); Potassium 4.1 mmol/L (3.4-5.0); Sodium 134 mmol/L (137-145)
[2019-11-16 08:44] VITALS: BP 133/73; PULSE 102; RESP 16; O2SAT 99
[2019-11-16] MEDS: PANTOPRAZOLE 40 MG TABLET PO ×2 (08:45→21:29)
[2019-11-16] MEDS: TOLNAFTATE 1% POWDER 45 GM BTL 1 APPLIC TOPICAL ×2 (08:46→21:09)
[2019-11-16] MEDS: FAMOTIDINE 20 MG TABLET PO ×2 (08:46→21:07)
[2019-11-16] MEDS: AMLODIPINE BESYLATE 5 MG TABLET PO (08:46)
--- NOTE | 2019-11-16 10:49 | WPDGIPROGNO ---
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 - Other herpesviral infection; K20.8 - Other esophagitis <Tory Manrique APRN - Last Filed: 11/16/19 10:53> Status: Acute <Tory ChevyElizabeth Manrique APRN - Last Filed: 11/16/19 10:53> Assessment and Plan: This is most likely the cause for odynophagia -Continue morphine 5 mg suspension AC as this seems to be helping the patient -Consider EGD if symptoms fail to improve or worsen <Tory Manrique APRN - Last Filed: 11/16/19 10:53> (2) Hepatic steatosis: Code(s): K76.0 - Fatty (change of) liver, not elsewhere classified <Tory Manrique APRN - Last Filed: 11/16/19 10:53> Status: Acute <Tory Manrique APRN - Last Filed: 11/16/19 10:53> Assessment and Plan: Low fat diet. Alchohol cessaion <Tory Manrique APRN - Last Filed: 11/16/19 10:53> (3) Gastroesophageal reflux disease: Code(s): K21.9 - Gastro-esophageal reflux disease without esophagitis <Tory Manrique APRN - Last Filed: 11/16/19 10:53> Status: Acute <Tory Manrique APRN - Last Filed: 11/16/19 10:53> Assessment and Plan: Continue PPI BID <Tory Manrique APRN - Last Filed: 11/16/19 10:53> Additional Plan I have personally seen and examined this patient and agree with the above note. Feels better. VSS soft/NT Cr 3.8. LFT's normal. Assessment and Plan Odynophagia related to Herpes Esophagitis - Improved with Morphine; continue - Patient tolerates po without problem - Titrate to lowest effective dose or off as infection resolves - No need for EGD No further recommendations. Please call if needed. Thanks, [facility] [phone] <Zac Parkinson MD - Last Filed: 11/16/19 19:27> Subjective Date/time seen: 11/16/19 10:49 Patient odynophagaia is improving with oral suspension morphine prior to eating. He denies any hemetemesis, nausea or vomiting. Does have some abdominal bloating this AM. He is having BM and passing gas. <Tory Manrique APRN - Last Filed: 11/16/19 10:53> Review of Systems Review of Systems: All systems reviewed & are unremarkable except as noted in HPI and below <Tory Manrique APRN - Last Filed: 11/16/19 10:53> Gastrointestinal: Gastrointestinal: Reports as per HPI <Tory Manrique APRN - Last Filed: 11/16/19 10:53> Exam Const: General: cooperative, healthy appearing, comfortable, no acute distress and awake <Tory Manrique APRN - Last Filed: 11/16/19 10:53> Orientation/consciousness: patient oriented x3 <Tory Manrique APRN - Last Filed: 11/16/19 10:53> Resp: Effort & Inspection: normal respiratory effort <Tory Manrique APRN - Last Filed: 11/16/19 10:53> Auscultation: clear to auscultation bilaterally <Tory Manrique APRN - Last Filed: 11/16/19 10:53> Cardio: Rate: regular rate <Tory Manrique APRN - Last Filed: 11/16/19 10:53> Rhythm: regular rhythm <Tory Manrique APRN - Last Filed: 11/16/19 10:53> Heart sounds: S1 normal heart sound present, S2 normal heart sound present, no gallops, no murmurs and no rubs <Tory Manrique APRN - Last Filed: 11/16/19 10:53> GI: Inspection: normal to inspection <Tory Manrique APRN - Last Filed: 11/16/19 10:53> GI Palp: No abdominal tenderness, Yes Soft to palpation and No Hepatosplenomegaly present <Tory Manrique APRN - Last Filed: 11/16/19 10:53> Auscultation: normal bowel sounds <Tory Manrique APRN - Last Filed: 11/16/19 10:53> Rectal Exam: deferred <Tory Manrique APRN - Last Filed: 11/16/19 10:53> Skin: General skin exam: normal color <Tory Manrique APRN - Last Filed: 11/16/19 10:53> Neuro: General: patient oriented x3 <Tory Manrique APRN - Last Filed: 11/16/19 10:53> Objective Data Vital Signs Vital Signs: Vital Signs - 24 hr 11/15/19 14:00 11/15/19 22:00 11/16/19 06:00 Temperature 36.2 C L 36.8 C 36.7 C Pulse Rate 115 H 102 H
[2019-11-16 14:00] VITALS: BP 145/71; PULSE 99; RESP 16; TEMP 36.9; O2SAT 97
--- NOTE | 2019-11-16 15:19 | PM.CNNEP ---
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 Additional Plan Gage has suffered an acute insult to his kidneys with the exact etiology not entirely clear at this time. His kidney function at baseline is normal and was so on November 14, 2019. The next day, November 14, his creatinine domenica to 3.4 mg/dL and has remained elevated since. Despite the rise in his creatinine, he has no critical electrolyte abnormalities and he continues to make fairly good urine output although he is on IV fluid resuscitation which was restarted about 24 hours ago. It is difficult to say what the exact cause of this change in his kidney function is at this time. From review of the records during this hospital stay, he has not had any issues or problems with significant hypotension although he has been exposed to multiple IV medications including vancomycin, ibuprofen and of course currently acyclovir all which have the potential to cause acute kidney injury. I suppose atheroembolic disease is possible as well or possibly even renal infarction could be a possible issue but evidence seems argue against this with regard to stable hemodynamics, negative urine sediment, no other stigmata of any these diseases. His most recent renal ultrasound demonstrated normal anatomy with no evidence of hydronephrosis so obviously obstruction is not a consideration either. Given the rapid decline is occurred in a 24 hour period of time, I do not 1 assume that her any other possibilities that we are unaware of. With this in mind, I will check an extensive serological evaluation to rule out any type of intrinsic, infiltrative, is or inflammatory disorders that may be affecting his kidneys. Urine electrolytes have been ordered as well as urine eosinophils on the possibility of allergic interstitial nephritis from anyone other possible medications he has been he has taken previously. The only medication he is currently on right now that could possibly be adversely affecting his kidney function is the a for mentioned IV acyclovir in the possibility of some type of crystal nephropathy with its use. However once again, as mentioned, his urinalysis did not show any type of crystals by recent testing. For now, I would continue supportive measures including the a for mentioned IV fluids on the assumption that perhaps maybe relative volume depletion may be playing a role but this seems unlikely given the aggressive IV fluid resuscitation he received on presentation given the concern for sepsis. I will continue follow the patient with you while remains hospitalized and make further recommendations during his hospital course. Thank you for allowing me to participate in the care this patient. History of Present Illness Reason for Consult Consult date: 11/16/19 Reason for consult: acute renal failure Chief Complaint Chief complaint: Sepsis, Transminitis, Hypokalemia History of Present Illness Narrative: The patient is a 39-year-old male male with a past medical history as noted below who initially presented to [facility] ER about a week ago for evaluation of a fever. About 3 - 4 days prior
--- NOTE | 2019-11-16 15:23 | PM.IMPN ---
Progress Note: A&P Assessment and Plan (1) Sepsis: Qualifiers: Sepsis acute organ dysfunction status: without acute organ dysfunction Sepsis type: sepsis due to unspecified organism Qualified Code(s): A41.9 - Sepsis, unspecified organism Code(s): A41.9 - Sepsis, unspecified organism Status: Acute Assessment and Plan: Present on admission with fever, tachycardia, and elevated lactic acid level to 3.2. Repeat lactic normal. He received vancomycin and cefepime in the ED. BCx NGTD. CTA showing no PE or airspace disease. Abd soft and GB normal by US. UA noted and UCx essentialy negative. Had been grilling out and has a lot of mosquitoes. LP performed given the concern for EEE or other encephalopathies. CSF protein elevated with normal glucose c/w viral. WNV sent as well. . Abx r to cover for meningitis and d/c / with cultures still neg. Also acyclovir menigitic doses with HSV by PCR returning + for type 1 today(D#8). Definetly improving. ID suggest full 10 days (2) Suspected COVID-19 virus infection: Code(s): Z20.828 - Contact with and (suspected) exposure to other viral communicable diseases Status: Acute Assessment and Plan: negative swab (3) Elevated LFTs: Code(s): R79.89 - Other specified abnormal findings of blood chemistry Status: Acute Assessment and Plan: AST 695 and ALT 321 with AP 321 and TB 1.7 on admission. Levels trending down and normal today with AST at 40 and ALT 37 7/5. More hepatocellular and suspect related to above . Acetaminophen level negative. HIV negative. Hepatitis panel negative. Lipase normal. TCK mildly elevated but normal 7/2.. (4) Hypokalemia: Code(s): E87.6 - Hypokalemia Status: Acute Assessment and Plan: Potassium 2.6 on admission. This was replaced and normalized. Repeat potassium today 4.1. . (5) Hyponatremia: Code(s): E87.1 - Hypo-osmolality and hyponatremia Status: Acute Assessment and Plan: Sodium 125 on admission. Suspect related to dehydration +/- part of the infectious etiology. Consider [place] disease but felt less likely since usually a self limiting disease related to known outbreak. Sodium 134 today. resumed IV fluids. 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 Symptoms better and ulcers appear improved. Continue Popvic's solution given his sore throat. Continue acyclovir. (8) Essential hypertension: Code(s): I10 - Essential (primary) hypertension Status: Acute Assessment and Plan: Blood pressure reviewed on 11/16/2019. Blood pressure is better overall. Continue the amlodipine and ARB continues on hold. (9) Anxiety: Code(s): F41.9 - Anxiety disorder, unspecified Status: Acute Assessment and Plan: Lexapro on hold for now (10) Elevated serum creatinine: Code(s): R79.89 - Other specified abnormal findings of blood chemistry Status: Acute Assessment and Plan: Creatinine 7.4 at 3.4. and repeat 3.9. Large increase in just 24 hours from normal at 0.7. Has had IV contrast, IV vancomycin, and IV ibuprofen since admission. Antibiotics and ibuprofen discontinued 11/12 CK was mildly elevated but returned normal on 11/12 Repeat creatinine as stated amd 3.8 this am, check urine eosinophils, US normal. Nephrology opinion too Subjective Date/time seen: 11/16/19 15:23 Interval history: Date of visit 11/15 39yo male here for cough, fever, SOB and oral ulcers. Patient alert and no longer confused
[2019-11-16 20:34] LABS: Creatinine Urine 66.3 mg/dL; Total Protein Urine Random 15 mg/dL
[2019-11-16 20:35] LABS: Sodium Urine Random 51 meq/L
[2019-11-16] MEDS: ENOXAPARIN 40 MG/0.4 ML SYRINGE SUB-Q (21:07)
[2019-11-16 22:00] VITALS: BP 136/82; PULSE 98; RESP 16; TEMP 36.4; O2SAT 95
[2019-11-17] MEDS: SODIUM CHLORIDE 0.9% IV 1,000 ML 100 ML IV CONT ×2 (03:51→15:05)
[2019-11-17 06:00] VITALS: BP 139/88; PULSE 80; RESP 16; TEMP 36.8; O2SAT 98
[2019-11-17] MEDS: DEXTROSE 5% IVPB ×2 (06:06→20:24)
[2019-11-17] MEDS: ACYCLOVIR SODIUM IVPB ×2 (06:06→20:24)
[2019-11-17] MEDS: WATER IVPB ×2 (06:06→20:24)
[2019-11-17 06:46] LABS: Albumin Level 3.7 g/dL (3.5-5.1); Blood Urea Nitrogen 17 mg/dL (9-20); Calcium 8.9 mg/dL (8.4-10.2); Carbon Dioxide 29 mmol/L (22-30); Chloride 101 mmol/L (98-107); Estimated CRCL calculation 35 ml/min; Estimated Glomerular Filt Rate 25; Glucose 95 mg/dL (75-110); Phosphorus 4.6 mg/dL (2.5-4.5); Potassium 4.1 mmol/L (3.4-5.0); Sodium 137 mmol/L (137-145)
[2019-11-17 06:51] LABS: Complement C3 146 mg/dL (88-165)
--- NOTE | 2019-11-17 08:51 | WPDINFPN2 ---
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 HSV 1 encephalitis, better 2. Low IgA level, possibly accounting for #1. But no Hx recurrent invasive infections 3. Acute renal failure, Dr Iglesias seeing REC ACV # 9 / 10 days, and adjust dosing to q12 hour. Suggest Immunology outpatient evaluation. No oral therapy needed once done with IV ACV in AM. Subjective Date/time seen: 11/17/19 08:51 Interval history: feels well, no subjective confusion, no n/v, no rashes Exam Narrative: Exam Narrative: afebrile Const: General: no acute distress Eyes: General: appearance normal, both eyes and all related structures Neck: Neck: supple Resp: Effort & Inspection: normal respiratory effort Auscultation: clear to auscultation bilaterally Cardio: Rate: regular rate Rhythm: regular rhythm GI: Inspection: non-distended GI Palp: Yes Soft to palpation and No Tenderness to palpation present (GI) Skin: General skin exam: normal color and no rashes or lesions noted Objective Data Vital Signs Vital Signs: Vital Signs - 24 hr 11/16/19 14:00 11/16/19 22:00 11/17/19 06:00 Temperature 36.9 C 36.4 C 36.8 C Pulse Rate 99 98 80 Respiratory Rate 16 16 16 Blood Pressure 145/71 H 136/82 139/88 Pulse Oximetry 97 95 98 Intake/Output Intake/Output: Intake & Output 11/14/19 11/15/19 11/16/19 11/17/19 23:59 23:59 23:59 23:59 Intake Total 6.4 1846.43 5606.4 2071 Output Total 2525 2800 Balance 6.4 1846.43 3081.4 -729 Meds/Results Medications: Active Medications Generic Name Dose Route Start Last Admin Trade Name Freq PRN Reason Stop Dose Admin Amlodipine Besylate 5 mg 11/11/19 09:00 11/16/19 08:46 Norvasc PO 5 mg QAM ANTHONY Administration Nystatin 60 ml/ Dexamethasone 0 ml 11/09/19 16:30 11/17/19 06:06 Sodium Phosphate 4 mg/ PO 20 ml Acetaminophen 2,880 mg/ ACHS ANTHONY Administration Tetracycline HCl 500 mg/ Diphenhydramine HCl 225 mg Enoxaparin Sodium 40 mg 11/08/19 21:00 11/16/19 21:07 Lovenox SUB-Q 40 mg Q24H ANTHONY Administration Escitalopram Oxalate 10 mg 11/09/19 09:00 11/09/19 08:24 Lexapro PO 10 mg DAILY ANTHONY Administration Famotidine 20 mg 11/08/19 21:00 11/16/19 21:07 Pepcid PO 20 mg Q12HR ANTHONY Administration Acyclovir Sodium 940 mg/ 268.8 mls @ 248.889 mls/hr 11/09/19 22:00 11/17/19 06:06 Dextrose IVPB 11/18/19 21:59 248 mls/hr Q8HR ANTHONY Administration Sodium Chloride 1,000 mls @ 100 mls/hr 11/15/19 17:40 11/17/19 05:16 Normal Saline Iv IV CONT 100 mls/hr .Q10H ANTHONY Infusion Irbesartan 150 mg 11/09/19 09:00 11/10/19 08:18 Avapro PO 150 mg DAILY ANTHONY Administration Morphine Sulfate 4 mg 11/08/19 14:39 Morphine Sulfate Inj IV PUSH Q2H PRN Pain Rated 7-10 Morphine Sulfate 5 mg 11/15/19 16:30 11/17/19 06:07 Roxanol PO 5 mg AC ANTHONY Administration Nicotine Polacrilex 4 mg 11/11/19 20:27 11/11/19 21:37 Nicorette 4 Mg Gum PO 4 mg PRN PRN Administration Nicotine Cravings Ondansetron HCl 4 mg 11/08/19 14:39 Zofran Inj IV PUSH Q4H PRN Nausea Pantoprazole Sodium 40 mg 11/15/19 12:10 11/16/19 21:29 Protonix PO 40 mg Q12HR ANTHONY Administration Tolnaftate 1 applic 11/09/19 21:00 11/16/19 21:09 Tolnaftate 1% Powder TOPICAL 1 applic Q12HR ANTHONY Administration Radiology Results: ITS Impressions Chest X-Ray 11/08/19 12:55 IMPRESSION: Unremarkable chest x-ray exam. Chest CTA 11/08/19 14:05 IMPRESSION: 1. Limited segmental evaluation, but no pulmonary emboli are suspected. 2. Hepatic steatosis. Abdomen Ultrasound 06/27/20 15:22 IMPRESSION: 1. Heterogeneous echotexture of the liver which may reflect steatosis or other liver disease. Head CT 11/09/19 19:38 IMPRESSION: 1. No acute intracranial a
[2019-11-17] MEDS: AMLODIPINE BESYLATE 5 MG TABLET PO (09:10)
[2019-11-17] MEDS: PANTOPRAZOLE 40 MG TABLET PO ×2 (09:10→20:23)
[2019-11-17] MEDS: FAMOTIDINE 20 MG TABLET PO ×2 (09:10→20:23)
[2019-11-17] MEDS: TOLNAFTATE 1% POWDER 45 GM BTL 1 APPLIC TOPICAL ×2 (09:12→20:24)
[2019-11-17 14:00] VITALS: BP 123/80; PULSE 95; RESP 16; TEMP 36.3; O2SAT 98
--- NOTE | 2019-11-17 17:15 | PM.PNNEP ---
Progress Note: A&P Assessment and Plan (1) RAMANA (acute kidney injury): Code(s): N17.9 - Acute kidney failure, unspecified Status: Acute Assessment and Plan: Creatinine was 0.7 then suddenly domenica to 3.4 in 1 day. He does have good muscle mass compared to his total wait which probably explains how quickly the creatinine domenica. Etiology of why the kidney function decline so quickly is unclear. Possibilities include acyclovir. This could be in form of a crystal nephropathy however no crystals were seen on his urinalysis. He could have intraparenchymal crystallization I suppose but I would still think that it would show open the urine. Even if this is the issue then hydration is the main treatment. The dose of the acyclovir has been adjusted. He is making lots of urine. Will continue to follow this along. Renal ultrasound shows no obstruction. Since his creatinine is better I doubt if this was a vascular catastrophe or things would of continued to worsen. His CPK is only mildly elevated and so rhabdomyolysis is not an issue either. Will check a renal panel tomorrow. Continue IV fluids. (2) Sepsis: Qualifiers: Sepsis acute organ dysfunction status: without acute organ dysfunction Sepsis type: sepsis due to unspecified organism Qualified Code(s): A41.9 - Sepsis, unspecified organism Code(s): A41.9 - Sepsis, unspecified organism Status: Acute Assessment and Plan: Blood cultures are negative. 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 This may be playing a role. Additional Plan Subjective Date/time seen: 11/17/19 17:15 Interval history: Patient is alert. Feels much better now. No more confusion. Urine output is good. Review of Systems Cardiovascular: Cardiovascular: Reports no additional cardiovascular complaints Respiratory: Respiratory: Reports no additional respiratory complaints Gastrointestinal: Gastrointestinal: Reports no additional gastrointestinal complaints Genitourinary: Genitourinary: Reports no additional male genitourinary complaints Exam Narrative: Exam Narrative: WDWN in NAD skin no rash or subcu nodules head ncat lungs clear cor reg no rub or gallop abd BS+ nontender and soft ext no edema. Or cyanosis Objective Data Vital Signs Vital Signs: Vital Signs - 24 hr 11/16/19 22:00 11/17/19 06:00 11/17/19 14:00 Temperature 36.4 C 36.8 C 36.3 C L Pulse Rate 98 80 95 Respiratory Rate 16 16 16 Blood Pressure 136/82 139/88 123/80 Pulse Oximetry 95 98 98 Intake/Output Intake/Output: Intake & Output 11/14/19 11/15/19 11/16/19 11/17/19 23:59 23:59 23:59 23:59 Intake Total 2056.4 1846.43 5606.4 3310 Output Total 2525 2800 Balance 2056.4 1846.43 3081.4 510 Meds/Results Medications: Active Medications Generic Name Dose Route Start Last Admin Trade Name Adrian PRN Reason Stop Dose Admin Amlodipine Besylate 5 mg 11/11/19 09:00 11/17/19 09:10 Norvasc PO 5 mg QAM ANTHONY Administration Nystatin 60 ml/ Dexamethasone 0 ml 11/09/19 16:30 11/17/19 16:58 Sodium Phosphate 4 mg/ PO 20 ml Acetaminophen 2,880 mg/ ACHS ANTHONY Administration Tetracycline HCl 500 mg/ Diphenhydramine HCl 225 mg Enoxaparin Sodium 40 mg 11/08/19 21:00 11/16/19 21:07 Lovenox SUB-Q 40 mg Q24H ANTHONY Administration Escitalopram Oxalate 10 mg 11/09/19 09:00 11/09/19 08:24 Lexapro PO 10 mg DAILY ANTHONY Administration Famotidine 20 mg 11/08/19 21:00
--- NOTE | 2019-11-17 17:42 | PM.IMPN ---
Progress Note: A&P Assessment and Plan (1) Sepsis: Qualifiers: Sepsis acute organ dysfunction status: without acute organ dysfunction Sepsis type: sepsis due to unspecified organism Qualified Code(s): A41.9 - Sepsis, unspecified organism Code(s): A41.9 - Sepsis, unspecified organism Status: Acute Assessment and Plan: Present on admission with fever, tachycardia, and elevated lactic acid level to 3.2. Repeat lactic normal. He received vancomycin and cefepime in the ED. BC NG. CTA showing no PE or airspace disease. Abd soft and GB normal by US. UA noted and UCx negative. Had been grilling out and has a lot of mosquitoes. LP performed given the concern for EEE or other encephalopathies. CSF protein elevated with normal glucose c/w viral. WNV sent as well. . Abx r to cover for meningitis and d/c 11/12 with cultures still neg. 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 Definetly improving to finish course 11/17 renal ajusted per ID (2) Suspected COVID-19 virus infection: Code(s): Z20.828 - Contact with and (suspected) exposure to other viral communicable diseases Status: Acute Assessment and Plan: negative swab (3) Elevated LFTs: Code(s): R79.89 - Other specified abnormal findings of blood chemistry Status: Acute Assessment and Plan: AST 695 and ALT 321 with AP 321 and TB 1.7 on admission. Levels trending down and normal today with AST at 40 and ALT 37 7/5. More hepatocellular and suspect related to above . Acetaminophen level negative. HIV negative. Hepatitis panel negative. Lipase normal. TCK mildly elevated but normal 11/12.. (4) Hypokalemia: Code(s): E87.6 - Hypokalemia Status: Acute Assessment and Plan: Potassium 2.6 on admission. This was replaced and normalized. Repeat potassium again today 4.1. . (5) Hyponatremia: Code(s): E87.1 - Hypo-osmolality and hyponatremia Status: Acute Assessment and Plan: Sodium 125 on admission. Suspect related to dehydration +/- part of the infectious etiology. Consider [place] disease but felt less likely since usually a self limiting disease related to known outbreak. Sodium 137 today. resumed IV fluids. 11/14 with rising creatinine (6) Dehydration: Code(s): E86.0 - Dehydration Status: Acute Assessment and Plan: Mild related to above on admission and with fever down will stopped IV flluids 11/11 but restarted 11/14 with rising creatinine (7) Oral ulcer: Code(s): K12.1 - Other forms of stomatitis Status: Acute Assessment and Plan: compatible with HSV which has returned + in CSF.. Symptoms better and ulcers appear improved. Continue Popvic's solution given his sore throat. Continue acyclovir. (8) Essential hypertension: Code(s): I10 - Essential (primary) hypertension Status: Acute Assessment and Plan: Blood pressure reviewed on 11/17/2019. Blood pressure is better overall. Continue the amlodipine and ARB continues on hold. (9) Anxiety: Code(s): F41.9 - Anxiety disorder, unspecified Status: Acute Assessment and Plan: Lexapro on hold for now (10) Elevated serum creatinine: Code(s): R79.89 - Other specified abnormal findings of blood chemistry Status: Acute Assessment and Plan: Creatinine 7.4 at 3.4. and repeat 3.9. Large increase in just 24 hours from normal at 0.7. had IV contrast, IV vancomycin, and IV ibuprofen since admission. Antibiotics and ibuprofen discontinued 11/12 CK was mildly elevated but returned normal on 11/12 Repeat creatinine 2.8 this am, check urine eosinophils, US normal. Nephrology following Subjective Date/time seen: 11/17/19 17:42 Interval history: Date of visit 11/16 39yo male here for cough, fever, SOB and oral ulcers. Patient alert and no longer confused. he denies cough, SOB,
[2019-11-17] MEDS: ENOXAPARIN 40 MG/0.4 ML SYRINGE SUB-Q (20:24)
[2019-11-17 22:00] VITALS: BP 147/91; PULSE 100; RESP 18; TEMP 36.3; O2SAT 100
[2019-11-18] MEDS: SODIUM CHLORIDE 0.9% IV 1,000 ML 100 ML IV CONT ×3 (00:38→20:18)
[2019-11-18 06:00] VITALS: BP 139/96; PULSE 82; RESP 18; TEMP 36.6; O2SAT 99
[2019-11-18 06:58] LABS: Albumin Level 3.9 g/dL (3.5-5.1); Blood Urea Nitrogen 16 mg/dL (9-20); Carbon Dioxide 30 mmol/L (22-30); Chloride 100 mmol/L (98-107); Estimated CRCL calculation 54 ml/min; Estimated Glomerular Filt Rate 42; Glucose 96 mg/dL (75-110); Potassium 3.9 mmol/L (3.4-5.0); Sodium 138 mmol/L (137-145)
[2019-11-18] MEDS: PANTOPRAZOLE 40 MG TABLET PO ×2 (09:31→20:19)
[2019-11-18] MEDS: AMLODIPINE BESYLATE 5 MG TABLET PO (09:31)
[2019-11-18] MEDS: FAMOTIDINE 20 MG TABLET PO (09:31)
[2019-11-18] MEDS: TOLNAFTATE 1% POWDER 45 GM BTL 1 APPLIC TOPICAL ×2 (09:32→20:19)
--- NOTE | 2019-11-18 09:58 | PM.PNNEP ---
Progress Note: A&P Assessment and Plan (1) RAMANA (acute kidney injury): Code(s): N17.9 - Acute kidney failure, unspecified Status: Acute Assessment and Plan: Creatinine was 0.7 then suddenly domenica to 3.4 in 1 day. He does have good muscle mass compared to his total wait which probably explains how quickly the creatinine domenica. His creatinine is improving with fluids. It dropped from 3.8 to 2.8 to1.8 today. He is drinking well. Will continue IV fluids while here. Discharged pending on how long he needs IV acyclovir. (2) Sepsis: Qualifiers: Sepsis acute organ dysfunction status: without acute organ dysfunction Sepsis type: sepsis due to unspecified organism Qualified Code(s): A41.9 - Sepsis, unspecified organism Code(s): A41.9 - Sepsis, unspecified organism Status: Acute Assessment and Plan: Blood cultures are negative. 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 Feels good. Making lots of urine. Drinking fluid. He is still getting IV fluids. Review of Systems Cardiovascular: Cardiovascular: Reports no additional cardiovascular complaints Respiratory: Respiratory: Reports no additional respiratory complaints Gastrointestinal: Gastrointestinal: Reports no additional gastrointestinal complaints Genitourinary: Genitourinary: Reports no additional male genitourinary complaints Exam Narrative: Exam Narrative: WDWN in NAD skin no rash or subcu nodules head ncat lungs clear bilaterally cor reg no rub or gallop abd BS+ nontender and soft ext no edema. Or cyanosis Objective Data Vital Signs Vital Signs: Vital Signs - 24 hr 11/17/19 14:00 11/17/19 22:00 11/18/19 06:00 Temperature 36.3 C L 36.3 C L 36.6 C Pulse Rate 95 100 82 Respiratory Rate 16 18 18 Blood Pressure 123/80 147/91 H 139/96 H Pulse Oximetry 98 100 99 Intake/Output Intake/Output: Intake & Output 11/15/19 11/16/19 11/17/19 11/18/19 23:59 23:59 23:59 23:59 Intake Total 1846.43 5606.4 4175 1690 Output Total 2525 4650 1600 Balance 1846.43 3081.4 -475 90 Meds/Results Medications: Active Medications Generic Name Dose Route Start Last Admin Trade Name Freq PRN Reason Stop Dose Admin Amlodipine Besylate 5 mg 11/11/19 09:00 11/18/19 09:31 Norvasc PO 5 mg QAM ANTHONY Administration Nystatin 60 ml/ Dexamethasone 0 ml 11/09/19 16:30 11/18/19 06:02 Sodium Phosphate 4 mg/ PO 20 ml Acetaminophen 2,880 mg/ ACHS ANTHONY Administration Tetracycline HCl 500 mg/ Diphenhydramine HCl 225 mg Enoxaparin Sodium 40 mg 11/08/19 21:00 11/17/19 20:24 Lovenox SUB-Q 40 mg Q24H ANTHONY Administration Escitalopram Oxalate 10 mg 11/09/19 09:00 11/09/19 08:24 Lexapro PO 10 mg DAILY ANTHONY Administration Famotidine 20 mg 11/08/19 21:00 11/18/19 09:31 Pepcid PO 20 mg Q12HR ANTHONY Administration Sodium Chloride 1,000 mls @ 100 mls/hr 11/15/19 17:40 11/18/19 00:38 Normal Saline Iv IV CONT 100 mls/hr .Q10H ANTHONY Administration Irbesartan 150 mg 11/09/19 09:00 11/10/19 08:18 Avapro PO 150 mg DAILY ANTHONY Administration Morphine Sulfate 4 mg 11/08/19 14:39 Morphine Sulfate Inj IV PUSH Q2H PRN Pain Rated 7-10 Morphine Sulfate 5 mg 11/15/19 16:30 11/18/19 06:02 Roxanol PO 5 mg AC ANTHONY Administration Nicotine Polacrilex 4 mg
[2019-11-18 14:00] VITALS: BP 133/86; PULSE 102; RESP 18; TEMP 36.6; O2SAT 99
--- NOTE | 2019-11-18 15:53 | WPDNEUROPN ---
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 Status: Acute (4) Anxiety: Code(s): F41.9 - Anxiety disorder, unspecified Status: Acute Additional Plan patient's encephalopathy and the mental status changes have resolved he has finished a course of therapy as for the neurological standpoint he can be discharged and I will be happy to follow him in couple of months if need be Review of Systems Review of Systems: All systems reviewed & are unremarkable except as noted in HPI and below Exam Const: General: comfortable and no acute distress HENMT: General nose exam: Normal nares present Mouth: Yes moist mucous membranes Eyes: General: appearance normal, both eyes and all related structures Neck: Neck: supple and no JVD Resp: Effort & Inspection: normal respiratory effort Auscultation: clear to auscultation bilaterally Cardio: Rate: regular rate Rhythm: regular rhythm GI: Auscultation: normal bowel sounds Skin: General skin exam: normal color Neuro: Other: normal examination without any lateralizing deficits Extrem: General: normal to inspection Psych: Mental Status: mental status grossly normal Objective Data Vital Signs Vital Signs: Vital Signs - 24 hr 11/17/19 22:00 11/18/19 06:00 11/18/19 14:00 Temperature 36.3 C L 36.6 C 36.6 C Pulse Rate 100 82 102 H Respiratory Rate 18 18 18 Blood Pressure 147/91 H 139/96 H 133/86 Pulse Oximetry 100 99 99 Intake/Output Intake/Output: Intake & Output 11/15/19 11/16/19 11/17/19 11/18/19 23:59 23:59 23:59 23:59 Intake Total 1846.43 5606.4 4175 2930 Output Total 2525 4650 1600 Balance 1846.43 3081.4 -475 1330 Meds/Results Medications: Active Medications Generic Name Dose Route Start Last Admin Trade Name Freq PRN Reason Stop Dose Admin Amlodipine Besylate 5 mg 11/11/19 09:00 11/18/19 09:31 Norvasc PO 5 mg QAM ANTHONY Administration Nystatin 60 ml/ Dexamethasone 0 ml 11/09/19 16:30 11/18/19 11:38 Sodium Phosphate 4 mg/ PO 20 ml Acetaminophen 2,880 mg/ ACHS ANTHONY Administration Tetracycline HCl 500 mg/ Diphenhydramine HCl 225 mg Enoxaparin Sodium 40 mg 11/08/19 21:00 11/17/19 20:24 Lovenox SUB-Q 40 mg Q24H ANTHONY Administration Escitalopram Oxalate 10 mg 11/09/19 09:00 11/09/19 08:24 Lexapro PO 10 mg DAILY ANTHONY Administration Famotidine 20 mg 11/08/19 21:00 11/18/19 09:31 Pepcid PO 20 mg Q12HR ANTHONY Administration Sodium Chloride 1,000 mls @ 100 mls/hr 11/15/19 17:40 11/18/19 10:41 Normal Saline Iv IV CONT 100 mls/hr .Q10H ANTHONY Administration Irbesartan 150 mg 11/09/19 09:00 11/10/19 08:18 Avapro PO 150 mg DAILY ANTHONY Administration Morphine Sulfate 5 mg 11/15/19 16:30 11/18/19 11:39 Roxanol PO 5 mg AC ANTHONY Administration Nicotine Polacrilex 4 mg 11/11/19 20:27 11/11/19 21:37 Nicorette 4 Mg Gum PO 4 mg PRN PRN Administration Nicotine Cravings Ondansetron HCl 4 mg 11/08/19 14:39 Zofran Inj IV PUSH Q4H PRN Nausea Pantoprazole Sodium 40 mg 11/15/19 12:10 11/18/19 09:31 Protonix PO 40 mg Q12HR ANTHONY Administration Tolnaftate 1 applic 11/09/19 21:00 11/18/19 09:32 Tolnaftate 1% Powder TOPICAL 1 applic Q12HR ANTHONY Administration Radiology Results: ITS Impressions Chest X-Ray 11/08/19 12:55 IMPRESSION: Unremarkable chest x-ray exam. Chest CTA 11/08/19 14:05 IMPRESSION: 1. Limited segmental evaluation, but no pulmonary emboli are suspected. 2. Hepatic steatosis. Abdomen Ultrasound 11/08/19 15:22 IMPRESSION: 1. Heterogeneous echot
--- NOTE | 2019-11-18 16:19 | PM.IMPN ---
Progress Note: A&P Assessment and Plan (1) Sepsis: Qualifiers: Sepsis acute organ dysfunction status: without acute organ dysfunction Sepsis type: sepsis due to unspecified organism Qualified Code(s): A41.9 - Sepsis, unspecified organism Code(s): A41.9 - Sepsis, unspecified organism Status: Acute Assessment and Plan: Present on admission with fever, tachycardia, and elevated lactic acid level to 3.2. Repeat lactic normal. He received vancomycin and cefepime in the ED. BC NG. CTA showing no PE or airspace disease. Abd soft and GB normal by US. UA noted and UCx negative. Had been grilling out and has a lot of mosquitoes. LP performed given the concern for EEE or other encephalopathies. CSF protein elevated with normal glucose c/w viral. WNV sent as well. . Abx r to cover for meningitis and d/c 11/12 with cultures still neg. 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 Mental status much improved. Patient has completed course of acyclovir. Appreciate ID input. Patient does not require oral therapy. (3) Elevated serum creatinine: Code(s): R79.89 - Other specified abnormal findings of blood chemistry Status: Acute Assessment and Plan: Creatinine 1.1 on admission but normalized to 0.7. On 11/14, Cr jumped to 3.4 with repeat 3.9 in just 24 hours from normal at 0.7. He had IV contrast, IV vancomycin, and IV ibuprofen since admission. Also on Acyclovir as well. Antibiotics and ibuprofen discontinued 11/12. Patient having excellent urine output now. Creatinine down to 1.8. Renal ultrasound normal. Appreciate Nephrology input. Continue IV fluids for day. Probably home tomorrow. (4) Elevated LFTs: Code(s): R79.89 - Other specified abnormal findings of blood chemistry Status: Acute Assessment and Plan: AST 695 and ALT 321 with AP 321 and TB 1.7 on admission. More hepatocellular and suspect related to above. Acetaminophen level negative. HIV negative. Hepatitis panel negative. Lipase normal. TCK mildly elevated but normal 11/12. Levels trended down and normal now. (5) Oral ulcer: Code(s): K12.1 - Other forms of stomatitis Status: Acute Assessment and Plan: Mouth sores compatible with HSV which has returned + in CSF. Symptoms better and ulcers have resolved. Will stop Popvic's solution. He has completed his course of acyclovir. (6) Herpes simplex esophagitis: Code(s): B00.89 - Other herpesviral infection; K20.8 - Other esophagitis Status: Acute Assessment and Plan: Patient's odynophagia has resolved. Will stop the morphine and isaias solution. (7) Hypokalemia: Code(s): E87.6 - Hypokalemia Status: Acute Assessment and Plan: Potassium 2.6 on admission. This was replaced and normalized. Potassium is been normal over the past 4 days. (8) Hyponatremia: Code(s): E87.1 - Hypo-osmolality and hyponatremia Status: Acute Assessment and Plan: Sodium 125 on admission. Suspect related to dehydration +/- part of the infectious etiology. Sodium 138 today. (9) Dehydration: Code(s): E86.0 - Dehydration Status: Acute Assessment and Plan: Mild and related to above on admission. IV flluids stopped on 11/11 but restarted 11/14 with rising creatinine. (10) Essential hypertension: Code(s): I10 - Essential (primary) hypertension Status: Acute Assessment and Plan: Blood pressure reviewed on 11/18/2019. Blood pressure is better overall. Continue amlodipine. Avapro remains on hold. (11) Anxiety: Code(s): F41.9 - Anxiety disorder, unspecified Status: Acut
[2019-11-18] MEDS: ENOXAPARIN 40 MG/0.4 ML SYRINGE SUB-Q (20:19)
[2019-11-18] MEDS: ACETAMINOPHEN 500 MG TABLET 1000 MG PO (20:39)
[2019-11-18 22:00] VITALS: BP 146/88; PULSE 76; RESP 18; TEMP 37.2; O2SAT 98
[2019-11-19] MEDS: SODIUM CHLORIDE 0.9% IV 1,000 ML 100 ML IV CONT (05:53)
[2019-11-19 06:00] VITALS: BP 135/86; PULSE 108; RESP 18; TEMP 36.7; O2SAT 99
[2019-11-19 06:39] LABS: Albumin Level 3.5 g/dL (3.5-5.1); Blood Urea Nitrogen 11 mg/dL (9-20); Calcium 8.9 mg/dL (8.4-10.2); Carbon Dioxide 31 mmol/L (22-30); Chloride 101 mmol/L (98-107); Estimated CRCL calculation 74 ml/min; Estimated Glomerular Filt Rate > 60; Glucose 94 mg/dL (75-110); Phosphorus 5.2 mg/dL (2.5-4.5); Potassium 4.2 mmol/L (3.4-5.0); Sodium 138 mmol/L (137-145)
[2019-11-19] MEDS: ESCITALOPRAM OXALATE 10 MG TABLET PO (08:16)
[2019-11-19] MEDS: AMLODIPINE BESYLATE 5 MG TABLET PO (08:16)
[2019-11-19] MEDS: TOLNAFTATE 1% POWDER 45 GM BTL 1 APPLIC TOPICAL (08:17)
[2019-11-19] MEDS: PANTOPRAZOLE 40 MG TABLET PO (08:17)
[2019-11-19 10:21] LABS: CD19 Percentage 15 % (6-29); CD19, Absolute 149 cells/uL (110-660); CD3, Absolute 745 cells/uL (840-3060); CD3, Percentage 76 % (57-85); CD3- CD16+ CD56+ 7 % (4-25); CD3- CD16+ CD56+ 74 cells/uL (70-760); CD4, Absolute 475 cells/uL (490-1740); CD4, Percentage 49 % (30-61); CD8, Absolute 238 cells/uL (180-1170); CD8, Percentage 24 % (12-42); Lymphocytes, Absolute 979 cells/uL (850-3900)
--- NOTE | 2019-11-19 11:57 | PM.DS ---
DS: Admitting Diagnosis Admitting Diagnosis Admitting Diagnosis: Sepsis, unspecified organism DS: Discharge Diagnosis Discharge Diagnosis (1) Sepsis: Qualifiers: Sepsis acute organ dysfunction status: without acute organ dysfunction Sepsis type: sepsis due to unspecified organism Qualified Code(s): A41.9 - Sepsis, unspecified organism Code(s): A41.9 - Sepsis, unspecified organism Status: Acute Assessment and Plan: Present on admission with fever, tachycardia, and elevated lactic acid level to 3.2. Repeat lactic normal. He received vancomycin and cefepime in the ED. BCx negative. CTA showing no PE or airspace disease. Abd soft and GB normal by US. UA noted and UCx negative. Developed mental status changes so LP performed given the concern encephalitis. CSF protein elevated with normal glucose c/w viral. WNV negative. Abx started to cover for meningitis and stopped 11/12 with cultures negative. Also was started on acyclovir menigitic doses with HSV by PCR returning + for type 1. ID consulted and patient completed course of IV acyclovir. 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 Mental status much improved. Patient has completed course of acyclovir. Appreciate ID input. Patient does not require oral therapy. (3) Elevated serum creatinine: Code(s): R79.89 - Other specified abnormal findings of blood chemistry Status: Acute Assessment and Plan: Creatinine 1.1 on admission but normalized to 0.7. On 11/14, Cr jumped to 3.4 with repeat 3.9 in just 24 hours from normal at 0.7. He had IV contrast, IV vancomycin, and IV ibuprofen since admission. Also on Acyclovir as well. Antibiotics and ibuprofen discontinued 11/12. IV fluids resumed. Patient having excellent urine output. Creatinine trended down to 1.3. Renal ultrasound normal. Appreciate Nephrology input. (4) Elevated LFTs: Code(s): R79.89 - Other specified abnormal findings of blood chemistry Status: Acute Assessment and Plan: AST 695 and ALT 321 with AP 321 and TB 1.7 on admission. More hepatocellular and suspect related to above. Acetaminophen level negative. HIV negative. Hepatitis panel negative. Lipase normal. TCK mildly elevated but normal 11/12. Repeat hepatic levels trended down and normal now. (5) Oral ulcer: Code(s): K12.1 - Other forms of stomatitis Status: Acute Assessment and Plan: Mouth sores compatible with HSV which has returned + in CSF. Symptoms better and ulcers have resolved. Treated with Popvic's solution and Protonix but now stopped. He has completed his course of acyclovir. (6) Herpes simplex esophagitis: Code(s): B00.89 - Other herpesviral infection; K20.8 - Other esophagitis Status: Acute Assessment and Plan: Patient with odynophagia felt related to HSV. Symptoms have now resolved. (7) Hypokalemia: Code(s): E87.6 - Hypokalemia Status: Acute Assessment and Plan: Potassium 2.6 on admission. This was replaced and normalized. Potassium is been normal over the past 4 days. (8) Hyponatremia: Code(s): E87.1 - Hypo-osmolality and hyponatremia Status: Acute Assessment and Plan: Sodium 125 on admission. Suspect related to dehydration +/- part of the infectious etiology. Sodium 138 today. (9) Dehydration: Code(s): E86.0 - Dehydration Status: Acute Assessment and Plan: Mild and related to above on admission. IV flluids stopped on 11/11 but restarted 11/14 with rising creatinine. (10) Essential hypertension: Code(s): I10 - Essential (primary) hypertension Status: Acute Assessment and Plan: Blood pressure monitored closely. Blood pressure is better overall. Treated with amlodipine and Avapro re
[2019-11-19 21:10] LABS: Albumin 3.4 g/dL (3.8-4.8); Alpha 1 Globulin 0.5 g/dL (0.2-0.3); Alpha 2 Globulin 0.9 g/dL (0.5-0.9); Beta 1 Globulin 0.5 g/dL (0.4-0.6); Gamma Globulin 1.2 g/dL (0.8-1.7); Protein, Total 6.6 g/dL (6.1-8.1)
[2019-11-19 23:01] LABS: Lambda Light Chain 21.7 mg/L (5.7-26.3)
[2019-11-20 04:22] LABS: Anti Streptolysin O Screen 82 IU/mL (<200)
[2019-11-20 05:44] LABS: Creatinine, Random Urine 64 mg/dL (20-320); Total Protein/Creatinine Ratio 109 mg/g creat (22-128)
[2019-11-20 19:12] LABS: Complement Total CH50 >60 U/mL (31-60)
[2019-11-21 08:48] LABS: Anti Glomerular Basement Memb <1.0 AI (<1.0)
[2019-11-21 11:52] LABS: ANCA Screen Negative (Negative)
[2019-11-21 20:03] LABS: Chloride Rand Ur 59 mmol/L (32-290); Chloride/Creatinine Rand Ur 91 (23-275); Creatinine Random Urine 65 mg/dL (20-320)
[2019-11-24 16:13] LABS: Coproporphyrin III 157.4 (4.8-88.6)
--- NOTE | 2019-11-26 11:24 | PC.NURSE ---
Faxed Lyme and Free [place] LC results to Dr. Cloud. Dr. Guthrie aware of findings. Anti- GBM- <1.0 ANCA is negative PAULINE is negative SIF and UIF are negative SPEP-s suggestion of acute inflammation pattern with elevation of acute phase proteins. UPEP is negative Lyme IgM and IgG are present but not reportable [place] is high at 21.7 Lambda is normal at 21.7 Dr. Guthrie aware of the above findings.
--- NOTE | 2019-12-01 15:29 | PC.NURSE ---
CH50- >60 DNA ds- <.[address] Jerri preciado.
== END 2019-11-19 12:50 | disposition home or self-care (01) | DRG 871 ==
LOC: ANHED 14:30 → ANH3MEDSUR 15:26
PROVIDERS: Internal Medicine; Internal Medicine Infectious Disease; Internal Medicine Nephrology; Physician Assistant; Psychiatry & Neurology Neurology; Admitting Provider Family Medicine; Emergency Provider Emergency Medicine; PCP Internal Medicine; Visit Provider Internal Medicine
DX: A41.9 Sepsis, unspecified organism (principal); B10.09 Other human herpesvirus encephalitis; B00.3 Herpesviral meningitis; E87.1 Hypo-osmolality and hyponatremia; N17.9 Acute kidney failure, unspecified; E87.6 Hypokalemia; I10 Essential (primary) hypertension; F41.9 Anxiety disorder, unspecified; Z20.828 Contact with and (suspected) exposure to other viral communicable diseases; E86.0 Dehydration; K12.1 Other forms of stomatitis; K21.9 Gastro-esophageal reflux disease without esophagitis; K20.8 Other esophagitis; K76.0 Fatty (change of) liver, not elsewhere classified; R13.19 Other dysphagia
CPT/HCPCS: 36415; 36600; 62328; 70450; 70553; 71045; 71275; 76705; 76775; 80048; 80053; 80069; 80074; 80076; 80202; 80307; 81001; 81003; 81050; 82375; 82436; 82550; 82570; 82728; 82784; 82805; 82945; 83050; 83520; 83540; 83605; 83615; 83690; 83735; 83874; 83880; 83883; 84100; 84120; 84132; 84145; 84155; 84156; 84157; 84165; 84166; 84300; 84443; 84484; 85025; 85055; 85380; 85610; 85730; 85999; 86021; 86038; 86060; 86140; 86160; 86162; 86225; 86308; 86334; 86335; 86360; 86592; 86617; 86644; 86645; 86703; 86788; 87040; 87070; 87081; 87086; 87088; 87102; 87205; 87206; 87529; 87635; 87798; 87880; 88108; 89051; 93005; 96365; 96366; 96367; 99285; A9270; A9577; C9803; G0432; J0133; J0692; J0696; J1100; J1630; J1650; J1741; J3370; J3475; J3480; J7030; J7060; Q9967; U0003

== ENCOUNTER 2020-12-31 17:14 | Emergency (ER) | payer OTHER, SELFPAY ==
[2020-12-31 17:29] VITALS: BP 131/92; PULSE 145; RESP 18; TEMP 36.8; O2SAT 96
--- NOTE | 2020-12-31 17:45 | ED.URI ---
HPI - URI/Sore Throat General Chief Complaint: Upper Respiratory Infection Stated Complaint: Sore throat,nausea,vomiting Time Seen by Provider: 12/31/20 17:45 Source: patient Mode of arrival: ambulatory Limitations: no limitations History of Present Illness HPI Narrative: Gage Saeed is a 40 yo male with PMH of depression/anxiety, hypertension, comes to [facility] with complaints of total fatigue nausea and vomiting and sore throat that started 5 days ago. He also is unable to sleep through the night will about waking up and vomiting. Today in the [facility] in triage his heart rate is 145 pulse ox is 96. He got his second Covid vaccine last Sunday but has already started developing symptoms right after the vaccine and has been sick since he states only wants to do is to be able to go home and lay down he is so tired Has some anxiety issues and feels anxious being in a doctor's office; he has been on anxiety medication for 1 year;he reports he takes his blood pressure medication as prescribed Related Data Allergies Allergy/AdvReac Type Severity Reaction Status Date / Time No Known Allergies Allergy Unknown Verified 12/31/20 17:54 Review of Systems Review of Systems: CONSTITUTIONAL: Denies fever, chills, sweats. Profound fatigue EYES: Denies visual changes, redness, discharge. ENT: Denies rhinorrhea, congestion, sore throat, otalgia. CARDIOVASCULAR: Denies chest pain, palpitations, edema. RESPIRATORY: Denies dyspnea, wheezing, cough GASTROINTESTINAL: Denies abdominal pain, has nausea, vomiting, diarrhea. GENITOURINARY: Denies dysuria, hematuria, abnormal discharge SKIN: Denies rash or itching. NEUROLOGIC: Denies numbness, or focal weakness. PSYCHIATRIC: Denies anxiety or depression. [facility] Past Medical History Medical History Anxiety Essential hypertension Gastroesophageal reflux disease Surgical History Surgical History Status post excision of lipoma Family History Family History Mother Breast cancer Father Hypertension Malignant neoplasm of prostate Grandparent Carcinoma of colon Social History Social History Social History: Surrogate decision maker: Chloé Saeed, . Code status: Full code. Smoking status: Never smoker Smokeless tobacco user: chewing tobacco Alcohol intake: current Drinks per week: 4 Alcohol use details: weekly Substance use: never Additional living arrangements comments: Currently living in [place] with his (going through divorce) and 2 sons. 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 Gender identity (if verbalized by the patient): Male Spiritual care concerns: No Comments At time of signature, I agree with nursing past medical, surgical, social and family history. There is no relevant family history pertinent to the presenting complaint. Exam Narrative: GENERAL: This is a well-nourished, well-developed patient, in mild distress. He looks like he feels ill; complaining of profound fatigue HEAD: normocephalic, atraumatic. EYES: Sclera clear/white. Vision is grossly intact. EARS: External ears normal, auditory canals clear and without drainage, TMs normal without perforation. Hearing grossly intact. NOSE: External nose normal without nasal discharge, nares without redness, no rhinorrhea. THROAT: Mucous membranes moist, posterior pharynx mild erythema NECK: Neck supple, non-tender CARDIOVASCULAR: Tachycardic rate and rhythm without murmurs, gallops, or rubs. RESPIRATORY: Clear to auscultation. Breath sounds equal bilaterally. No wheezes, rales, or rhonchi. GASTROINTESTINAL: Abdomen soft, SKIN: warm, intact with no suspicious lesions or rash, good texture and turgor. NEURO: awake, alert, an
[2020-12-31] MEDS: ONDANSETRON HCL ODT 4 MG TABLET PO (17:51)
[2020-12-31 18:22] VITALS: PULSE 145
--- NOTE | 2020-12-31 19:05 | PC.NURSE ---
1805-Pt has tolerated approx 3 oz of ice chips and drank a couple ounces of water. Pt given bottle of water.
--- NOTE | 2020-12-31 19:06 | PC.NURSE ---
1821-Pt has drank an additional 3 oz of water without issues. Pt asking to go home. HR remains elevated. Pt reports nausea completely gone.
== END 2020-12-31 18:35 | disposition home or self-care (01) ==
PROVIDERS: Emergency Provider Nurse Practitioner; PCP Internal Medicine
DX: B34.9 Viral infection, unspecified (principal); Z20.822 Contact with and (suspected) exposure to COVID-19; F17.220 Nicotine dependence, chewing tobacco, uncomplicated; I10 Essential (primary) hypertension; K21.9 Gastro-esophageal reflux disease without esophagitis
CPT/HCPCS: 87081; 87426; 87880; 99213; A9270; C9803; G0463